=== PATIENT | male | born 1985 | race Caucasian/White ===

== ENCOUNTER → 2020-08-30 11:33 | Outpatient (BNVA) | payer OTHER, SELFPAY | PROVIDERS: Visit Provider Internal Medicine | DX: F11.20 Opioid dependence, uncomplicated (principal) | CPT/HCPCS: 80305 ==

== ENCOUNTER → 2020-10-25 10:14 | Outpatient (BNVA) | payer OTHER, SELFPAY | PROVIDERS: Visit Provider Internal Medicine | DX: Z76.89 Persons encountering health services in other specified circumstances (principal) ==

== ENCOUNTER → 2020-12-20 10:25 | Outpatient (BNVA) | payer OTHER, SELFPAY | PROVIDERS: Visit Provider Internal Medicine ==

== ENCOUNTER → 2021-02-14 10:29 | Outpatient (BNVA) | payer OTHER, SELFPAY | PROVIDERS: Visit Provider Internal Medicine ==

== ENCOUNTER → 2021-04-11 10:15 | Outpatient (BNVA) | payer OTHER, SELFPAY | PROVIDERS: Visit Provider Internal Medicine | DX: F11.99 Opioid use, unspecified with unspecified opioid-induced disorder (principal) | CPT/HCPCS: 80305 ==

== ENCOUNTER 2021-04-12 10:38 | Emergency (ER) | payer OTHER, SELFPAY ==
[2021-04-12 10:51] VITALS: BP 149/97; PULSE 100; RESP 18; TEMP 36.1; O2SAT 96; BMI 32.8
--- NOTE | 2021-04-12 11:04 | ED_ITS ---
HPI - General Adult General Chief complaint: Skin/Abscess/Foreign Body Stated complaint: QUEST CELLULITIS R ARM Time Seen by Provider: 04/12/21 10:49 Source: patient Mode of arrival: ambulatory Limitations: no limitations History of Present Illness HPI narrative: 35-year-old male who presents emergency department for evaluation of possible cellulitis to his right forearm. The patient states that he had a insect bite on (3 days prior to evaluation). He states that there was a small raised area in the area of insect bite. States that yesterday the area of redness got larger. He spoke to his sister who was a nurse who advised him to draw a line around the area of redness and was instructed to get evaluated if the redness spreads outside of the marked area. Patient states that today notice that the redness spread significantly outside of the marked area therefore came to the emergency department for evaluation. Patient states that the area of erythema is warm to the touch and is painful. He denied fever, chills, weakness, fatigue, chest pain or shortness of breath. The patient has not been on antibiotics recently. He does not have a history of MRSA infection. He states that he had a cellulitis in the past secondary to insect bite. He states that his had MRSA but this was greater than 15 years prior. Related Data Home Medications Medication Instructions Recorded Confirmed bupropion HCl 300 mg 24 hr tablet, 300 mg PO QAM 10/25/20 02/14/21 extended release lisinopril 30 mg tablet 30 mg PO DAILY 10/25/20 02/14/21 venlafaxine 150 mg 150 mg PO DAILY 02/14/21 02/14/21 capsule,extended release 24 hr tamsulosin 0.4 mg capsule 0.4 mg PO BEDTIME 04/11/21 Previous Rx's Medication Instructions Recorded buprenorphine 8 mg-naloxone 2 mg 2 film SUBLINGUAL DAILY 30 Days 04/11/21 sublingual film #60 ea cephalexin 500 mg PO QID 7 Days #28 cap 04/12/21 Allergies Allergy/AdvReac Type Severity Reaction Status Date / Time alcohol [Alcohol] Allergy Unknown HIVES Verified 04/12/21 10:53 clindamycin [CLINDAMYCIN] Allergy Unknown bleeding Verified 04/12/21 10:53 CLINDAMYCIN Allergy Unknown diarrhea Uncoded 02/14/21 11:58 Review of Systems Review of Systems: Yes all other systems are reviewed and are negative PMFSH Past Medical History [facility] Narrative: Past medical history: Hypertension, hyperlipidemia, opiate use disorder in remission. Social history: The patient denies tobacco use. He states that he rarely drinks alcohol. He denies drug use. The patient is a [employer] officer. Medical History Opioid use disorder Social History Social History Advance Directives: Yes Advance Directives Information Provided: Yes Advance Directives on File: No Physical Exam Vital Signs: Vital Signs: Last Vital Signs Temp 97.0 F 04/12/21 10:51 Pulse 100 04/12/21 10:51 Resp 18 04/12/21 10:51 BP 149/97 H 04/12/21 10:51 Pulse Ox 96 04/12/21 10:51 Body Mass Index 32.8 Const: General: cooperative, healthy appearing and comfortable Nutritional Appearance: average body habitus Orientation/consciousness: oriented to person Limitations: no limitations HENMT: Head: Yes normal to inspection Resp: Effort & Inspection: normal respiratory effort Neuro: General: oriented to person Extrem: Other: The patient has a large area of erythema to the lateral aspect of his right forearm, the area of erythema is warm to the touch, there is no flocculence. Psych: Appearance: grossly normal Mental Status: mental status grossly normal Speech and movement: Normal speech and movement present Course Course Course Narrative: 35-year-old male who presents emergency department for evaluation of insect bite to the right forearm with erythema to his right forearm that has gotten progressively worse over the past 3 days. Physical examination is consistent with cellulitis. I did discuss this with the patient. Patient does not seem to have any significant MRSA infections and given the discomfort and rapid spread I suspect that he has a streptococcal infection. Patient was started on Keflex 500 mg 4 times a day for 7 days. He is advised to take Tylenol and ibuprofen for his pain. He is advised to keep his arm elevated use a heating pad on low for 15 minutes 4 to 6 times a day. He will be given a note to not return to work for 4 days. Discharge Plan Discharge Clinical Impression: Cellulitis Patient Disposition: Home, Self-Care Instructions: Cellulitis (ED) Additional Instructions: Cellulitis Discharge Instructions You have an infection of your skin. This is called cellulitis. This is usually caused by bacteria on your skin that gets under your skin and then causes the infection Take Keflex 500 mg pills, 1 pill 4 times a day for 1 week. This is an antibiotic that should help your body fight off the infection. Keep the area of cellulitis elevated to help reduce swelling in the infected area and this helps with the healing process Also apply a heating pad on low or a warm compress for 15 minutes, 4-6 times a day. This will increase the blood flow to the area and will bring white blood cells to the area which will help your body fight off the infection. Take Motrin(ibuprofen) 200mg pills, 3 pills every 6 hours as needed for pain. Also take Tylenol( acetaminophen) 325 mg pills, 2 pills every 4 hours as needed for pain. I peter a line around the area of cellulitis, the redness should withdraw from the line in the next 1-3 days. If the redness crosses the line this is a sign that the infection is getting worse and you should see your doctor or return to the Emergency Department for a recheck. Other signs of worsening infection include fever, chills, weakness, increased pain, increased redness, increased swelling or red streaks going away from the area of infection. If you develop any of these symptoms or any other symptoms that are concerning to you, see your doctor immediately or return to the Emergency Department. Follow up with your doctor in 3 days for a recheck Please read the other printed instructions that we printed for you. Prescriptions: New cephalexin 500 mg capsule 500 mg PO QID 7 Days Qty: 28 RF: 0 No Action buprenorphine-naloxone [Suboxone] 8-2 mg film 2 film sublingual DAILY 30 Days Qty: 60 RF: 1 tamsulosin [Flomax] 0.4 mg capsule 0.4 mg PO BEDTIME RF: 0 bupropion HCl [Wellbutrin XL] 300 mg tablet extended release 24 hr 300 mg PO QAM RF: 0 lisinopril 30 mg tablet 30 mg PO DAILY RF: 0 venlafaxine [Effexor XR] 150 mg capsule,extended release 24hr 150 mg PO DAILY RF: 0 Stand Alone Forms: Work/School Release
== END 2021-04-12 11:24 | disposition home or self-care (01) ==
PROVIDERS: Emergency Provider Emergency Medicine Emergency Medical Services; PCP Internal Medicine
DX: L03.113 Cellulitis of right upper limb (principal); M79.601 Pain in right arm; Z79.899 Other long term (current) drug therapy
CPT/HCPCS: 99283

== ENCOUNTER → 2021-06-06 09:55 | Outpatient (BNVA) | payer OTHER, SELFPAY | PROVIDERS: Visit Provider Internal Medicine | DX: Z51.81 Encounter for therapeutic drug level monitoring (principal); F11.90 Opioid use, unspecified, uncomplicated | CPT/HCPCS: 80305 ==

== ENCOUNTER → 2021-07-29 11:33 | Outpatient (BNVA) | payer OTHER, SELFPAY | PROVIDERS: Visit Provider Internal Medicine | DX: Z51.81 Encounter for therapeutic drug level monitoring (principal); F11.988 Opioid use, unspecified with other opioid-induced disorder; K59.00 Constipation, unspecified | CPT/HCPCS: 80305 ==

== ENCOUNTER → 2021-09-22 10:52 | Outpatient (BNVA) | payer OTHER, SELFPAY | PROVIDERS: Visit Provider Internal Medicine | DX: F11.90 Opioid use, unspecified, uncomplicated (principal); K59.00 Constipation, unspecified | CPT/HCPCS: 80305 ==

== ENCOUNTER 2021-11-12 14:29 | Outpatient (REF) | payer OTHER, SELFPAY ==
[2021-11-12 18:27] LABS: COVID-19 Test Negative (Negative); IDNOW Serial# 9DD0AD1C
== END 2021-11-12 14:30 | disposition home or self-care (01) ==
LOC: HO.LNP 14:29
PROVIDERS: Visit Provider Internal Medicine
DX: Z20.822 Contact with and (suspected) exposure to COVID-19 (principal)
CPT/HCPCS: 87635

== ENCOUNTER → 2022-01-14 11:07 | Outpatient (BNVA) | payer OTHER, SELFPAY | PROVIDERS: Visit Provider Internal Medicine | DX: F11.90 Opioid use, unspecified, uncomplicated (principal); K59.00 Constipation, unspecified; Z51.81 Encounter for therapeutic drug level monitoring; Z88.3 Allergy status to other anti-infective agents; Z88.8 Allergy status to other drugs, medicaments and biological substances | CPT/HCPCS: 80305 ==

== ENCOUNTER → 2022-03-09 10:30 | Outpatient (BNVA) | payer OTHER, SELFPAY | PROVIDERS: Visit Provider Internal Medicine | DX: Z51.81 Encounter for therapeutic drug level monitoring (principal); F11.20 Opioid dependence, uncomplicated | CPT/HCPCS: 80305 ==

== ENCOUNTER 2022-04-14 12:30 | Emergency (ER) | payer OTHER, SELFPAY ==
[2022-04-14 12:46] VITALS: BP 140/75; PULSE 102; RESP 18; TEMP 36.8; O2SAT 97; BMI 31.9
--- NOTE | 2022-04-14 13:37 | ED.EYEPROB ---
HPI - Eye Problem General Chief complaint: Eye Problems Stated complaint: ? L Eye Infection Time Seen by Provider: 04/14/22 13:21 Source: patient Mode of arrival: ambulatory Limitations: no limitations History of Present Illness HPI Narrative: 36-year-old male here with reports of left upper eyelid swelling since last night. Patient also reports some irritation to the eye. No eye drainage, no vision changes, no pain in the eye. No fevers or chills. Does not use any contacts. Related Data Home Medications Medication Instructions Recorded Confirmed bupropion HCl 300 mg 24 hr tablet, 300 mg PO QAM 10/25/20 02/14/21 extended release (Wellbutrin XL) lisinopril 30 mg tablet 30 mg PO DAILY 10/25/20 02/14/21 venlafaxine 150 mg 150 mg PO DAILY 02/14/21 02/14/21 capsule,extended release 24 hr (Effexor XR) tamsulosin 0.4 mg capsule (Flomax) 0.4 mg PO BEDTIME 04/11/21 Previous Rx's Medication Instructions Recorded cephalexin 500 mg capsule 500 mg PO QID 7 Days #28 cap 04/12/21 naloxegol 25 mg tablet 25 mg PO QAM 30 Days #30 tab 07/29/21 lactulose 20 gram/30 mL oral 30 g (45 mL) PO DAILY 30 Days 08/04/21 solution #1350 ml buprenorphine 8 mg-naloxone 2 mg 2 film SUBLINGUAL DAILY 30 Days 03/09/22 sublingual film (Suboxone) #60 ea erythromycin 5 mg/gram (0.5 %) eye 0.5 inch OPHTHALMIC (EYE) TID #3.5 04/14/22 ointment g Allergies Allergy/AdvReac Type Severity Reaction Status Date / Time alcohol [Alcohol] Allergy Unknown HIVES Verified 04/14/22 12:46 clindamycin [CLINDAMYCIN] Allergy Unknown bleeding Verified 04/14/22 12:46 CLINDAMYCIN Allergy Unknown diarrhea Uncoded 02/14/21 11:58 Review of Systems Review of Systems: Yes all other systems are reviewed and are negative Constitutional: Constitutional: Reports no additional constitutional complaints, Denies body ache(s), Denies chills, Denies fever(s), Denies headache(s) and Denies weakness Eyes: Eyes: Reports no additional eye complaints, Denies change in vision, Denies eye discharge, Denies eye pain and Denies photophobia ENT: Reports system reviewed and no additional complaints, except as documented, Denies dizziness, Denies headache(s), Denies nasal congestion, Denies nasal discharge and Denies neck pain Cardiovascular: Cardiovascular: Reports no additional cardiovascular complaints, Denies chest pain, Denies leg edema and Denies dyspnea Respiratory: Respiratory: Reports no additional respiratory complaints, Denies cough and Denies dyspnea Gastrointestinal: Gastrointestinal: Reports no additional gastrointestinal complaints, Denies abdominal pain, Denies diarrhea, Denies nausea and Denies vomiting Genitourinary: Genitourinary: Denies urinary incontinence Musculoskeletal: Musculoskeletal: Reports no additional musculoskeletal complaints, Denies back pain, Denies arthralgias, Denies joint swelling, Denies neck pain, Denies numbness and Denies tingling Integumentary/Breasts: Skin/Breast: Reports system reviewed and no additional complaints, except as docu and Denies rash Neurologic: Reports system reviewed and no additional complaints, except as documented, Denies Abnormal speech present, Denies dizziness, Denies headache(s), Denies numbness, Denies tingling and Denies weakness PMF Past Medical History Attestation statement: The following information was validated with the patient. Source: nursing notes reviewed Medical History Constipation Opioid use disorder Social History Social History Advance Directives: No Advance Directives Information Provided: No Physical Exam Vital Signs: Vital Signs: Last Vital Signs Temp 98.3 F 04/14/22 12:46 Pulse 102 H 04/14/22 12:46 Resp 18 04/14/22 12:46 BP 140/75 H 04/14/22 12:46 Pulse Ox 97 04/14/22 12:46 BMI result Body Mass Index 31.9 Const: General: cooperative, healthy appearing, comfortable and no acute distress Orientation/consciousness: patient oriented x3 Limitations: no limitations HEENT: Head: Yes normal to inspection Ears: hearing grossly normal bilaterally Eyes: General: appearance normal, both eyes and all related structures Visual Aguiar: normal visual aguiar by confrontation Alignment and Position: alignment normal Periorbital: periorbital findings normal Eyelids: Yes eyelid abnormality (Left upper eyelid hordeolum with pointing internally) Conjunctivae: conjunctivae normal Sclerae: sclerae normal Corneas: corneas normal Pupils: Equal, round and reactive pupils present EOM: EOMs intact bilaterally Direct Ophthalmoscopy: normal light reflex and No photophobia Neck: Neck: Yes normal visual inspection Chest: Chest palpation & inspection: normal inspection of the chest Resp: Effort & Inspection: normal respiratory effort GI: Inspection: Yes normal to inspection Palpation (GI): Soft to palpation and nontender Auscultation: normal bowel sounds Back/Spine/Pelvis: Thoracic/Lumbar Spine: thoracic and lumbar spine normal to inspection Skin: General skin exam: no rashes or lesions noted Neuro: General: patient oriented x3 and no focal motor deficits Cranial nerves: Yes Equal, round and reactive pupils present Cognition (Neuro): normal cognition Speech: No Abnormal speech present Gait exam (Neuro): Normal gait present Course Course Course Narrative: 36-year-old male here with left upper eyelid hordeolum. Offered aspiration but patient declines. Will recommend warm compresses, massage and topical antibiotic ointment. Reviewed worrisome signs and symptoms of when to return to the emergency department. Comfortable discharge home. MDM - Eye Problem Medical Records Attestation: I reviewed the patient's medical records. Lab Data Attestation: I reviewed the patient's lab results. Discharge Plan Discharge Clinical Impression: Hordeolum eyelid Patient Disposition: Home, Self-Care Instructions: Tariq (ED) Additional Instructions: Warm compresses, gentle massage Prescriptions: New erythromycin 5 mg/gram (0.5 %) ointment 0.5 inch ophthalmic (eye) TID Qty: 3.5 0RF No Action cephalexin 500 mg capsule 500 mg PO QID 7 Days Qty: 28 0RF tamsulosin [Flomax] 0.4 mg capsule 0.4 mg PO BEDTIME 0RF bupropion HCl [Wellbutrin XL] 300 mg tablet extended release 24 hr 300 mg PO QAM 0RF lisinopril 30 mg tablet 30 mg PO DAILY 0RF venlafaxine [Effexor XR] 150 mg capsule,extended release 24hr 150 mg PO DAILY 0RF naloxegol 25 mg tablet 25 mg PO QAM 30 Days Qty: 30 5RF Rx Instructions: must be taken on empty stomach; no food 1 hr after or 2-3 hrs before dose lactulose 20 gram/30 mL solution 30 g PO DAILY 30 Days Qty: 1350 3RF buprenorphine-naloxone [Suboxone] 8-2 mg film 2 film sublingual DAILY 30 Days Qty: 60 1RF Rx Instructions: place 1 strip/tab under (each) side of tongue please fill today or tomorrow Referrals: Princess Medellin MD [Primary Care Provider] - 1 week (as needed)
[2022-04-14] MEDS: Erythromycin Base 0.5% Oph Oin 1 GM TUBE 1 CM EYE-LEFT (13:45)
== END 2022-04-14 14:01 | disposition home or self-care (01) ==
PROVIDERS: Emergency Provider Emergency Medicine; PCP Internal Medicine
DX: H00.024 Hordeolum internum left upper eyelid (principal)
CPT/HCPCS: 99283

== ENCOUNTER → 2022-05-04 10:04 | Outpatient (BNVA) | payer OTHER, SELFPAY | PROVIDERS: PCP Internal Medicine; Visit Provider Internal Medicine | DX: Z51.81 Encounter for therapeutic drug level monitoring (principal); F11.20 Opioid dependence, uncomplicated | CPT/HCPCS: 80305 ==

== ENCOUNTER 2022-08-02 12:31 | Emergency (ER) | payer OTHER, SELFPAY ==
--- NOTE | ~2022-08-02 | XR_ITS ---
EXAMINATION: XR KNEE, LEFT CLINICAL INFORMATION: Fall, pain COMPARISON: None TECHNIQUE: Four views of the left knee. FINDINGS: No evidence for an acute fracture or dislocation. XR/XR knee LT 4V IMPRESSION: No acute fracture or dislocation left knee. A small effusion cannot be excluded
[2022-08-02 12:33] VITALS: BP 151/83; PULSE 120; RESP 18; TEMP 37.2; O2SAT 97; BMI 31.0
--- NOTE | 2022-08-02 13:32 | ED_ITS ---
HPI - Extremity Injury (Lower) General Chief Complaint: Extremity Injury, Lower Stated Complaint: fell down steps at work Time Seen by Provider: 08/02/22 13:25 Source: patient Mode of arrival: ambulatory Limitations: no limitations History of Present Illness HPI Narrative: 37-year-old male with no pertinent past medical history presenting with left knee pain after falling at work. 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 He slipped in that paint and fell down approximately 5 stairs feet first. This occurred approximately 1 hour ago and the fall was witnessed by other police officers. He states that his left knee hyperextended when he fell and felt like it got stuck in that position, reporting that he had to pull his leg back . Reports he was able to stand up with assistance, however was unable to bear weight due to pain. Pain with weight-bearing was tenderness and however is decreased when sitting. Patient had ice applied to his knee, which helped with the pain. Denies any symptoms prior to the fall. Denies head strike, dizziness, nausea vomiting, loss of control of bowels or bladder. MD complaint: knee injury Onset (ago): minute(s) Injury: Left: knee Type of Injury: hyperextension Place: work Severity: severe Severity scale (1-10): 8 Relieving factors: cold therapy and rest Exacerbating factors: weight bearing, movement and palpation Context: fall Associated symptoms: unable to bear weight Other symptoms: none Treatments prior to arrival: cold therapy Related Data Home Medications Medication Instructions Recorded Confirmed bupropion HCl 300 mg 24 hr tablet, 300 mg PO QAM 10/25/20 02/14/21 extended release (Wellbutrin XL) lisinopril 30 mg tablet 30 mg PO DAILY 10/25/20 02/14/21 venlafaxine 150 mg 150 mg PO DAILY 02/14/21 02/14/21 capsule,extended release 24 hr (Effexor XR) tamsulosin 0.4 mg capsule (Flomax) 0.4 mg PO BEDTIME 04/11/21 Previous Rx's Medication Instructions Recorded cephalexin 500 mg capsule 500 mg PO QID 7 days #28 caps 04/12/21 naloxegol 25 mg tablet 25 mg PO QAM 30 days #30 tabs 07/29/21 lactulose 20 gram/30 mL oral 30 g (45 mL) PO DAILY 30 days 08/04/21 solution #1,350 mL erythromycin 5 mg/gram (0.5 %) eye 0.5 inch ophthalmic (eye) TID #3.5 04/14/22 ointment grams buprenorphine 8 mg-naloxone 2 mg 2 film sublingual DAILY 30 days 06/29/22 sublingual film (Suboxone) #60 ea acetaminophen 500 mg tablet 1,000 mg PO QID PRN fever or pain 08/02/22 (Tylenol Extra Strength) #14 tabs ibuprofen 800 mg tablet 800 mg PO Q8H PRN pain #14 tabs 08/02/22 Allergies Allergy/AdvReac Type Severity Reaction Status Date / Time alcohol [Alcohol] Allergy Unknown HIVES Verified 06/29/22 10:21 clindamycin [CLINDAMYCIN] Allergy Unknown bleeding Verified 06/29/22 10:21 CLINDAMYCIN Allergy Unknown diarrhea Uncoded 02/14/21 11:58 Review of Systems Review of Systems: Constitutional : No Fever, No Chills ENT/Mouth : No Ear Pain, No Hoarseness, No sore throat Eyes: No Eye Pain, No Swelling, No Redness, No Foreign Body Cardiovascular : No Chest Pain, No SOB Respiratory : No Cough, No Dyspnea Gastrointestinal : No Nausea, No Vomiting, No Diarrhea, No abdominal Pain Genitourinary : No Dysuria, No Hematuria Musculoskeletal : + left knee pain, No Myalgias, No Joint Swelling Skin : No Skin lacerations, No rash Neuro : No Weakness, No Numbness, No Paresthesias, No Loss of Consciousness, No Dizziness, No Headache Psych : No Anxiety/Panic, No Depression Heme/Lymph: no easy bruising, no Lymphadenopathy Endocrine : No Polyuria, No Polydipsia Yes all other systems are reviewed and are negative COUNT INCLUDES THE [facility] Past Medical History Attestation statement: The following information was validated with the patient. Source: old records reviewed and nursing notes reviewed Medical History Constipation Opioid use disorder Social History Social History Advance Directives: No Advance Directives Information Provided: No Physical Exam Vital Signs: Vital Signs: Last Vital Signs Temp 98.9 F 08/02/22 12:33 Pulse 120 H 08/02/22 12:33 Resp 18 08/02/22 12:33 BP 151/83 H 08/02/22 12:33 Pulse Ox 97 08/02/22 12:33 O2 Del Method 08/02/22 12:33 BMI result Body Mass Index 31.0 vital signs have been reviewed as normal and appeared to be correct. Blood pressure 151/83 Heart rate 120. Respiration rate normal. Temperature normal. Oxygen saturation normal. Appearance: Alert. Oriented X3. No acute distress. Sitting in wheelchair Head: Normal external exam. Normocephalic. Atraumatic. Eyes: PERRLA. EOMI. Conjunctiva and sclera normal. Eyelids normal. ENT: Pharynx normal. Moist mucous membranes. Neck: Normal inspection. Neck supple. FROM. CVS: Normal heart rate and rhythm. Respiratory: No respiratory distress. Painless inspiration. Skin: Skin warm and dry. Normal skin color. Normal skin turgor. No rashes/lesions/lacerations noted. Extremities: + pain with range of motion of left knee, pain with posterior palpation injuring her in palpation of left knee, no deformity, ecchymosis, edema noted, no obvious ligamentous or tendon injury noted. No lower extremity edema. Able to demonstrate full range of motion, no numbness, paresthesias, loss of sensation. Otherwise all other extremities exhibit normal range of motion nontender. Neuro: Oriented X 3. No motor deficit. No sensory deficit. Reflexes normal. Normal steady gait. No focal neuro deficits noted. Course Course Course Narrative: 37-year-old male with no pertinent past medical history presenting with left knee pain after falling down approximately 5 stairs after slipping in paint. Patient states fell the feet first, and hyperextended his left leg, having to pull back his lower leg into flexion after the fall. On exam, no obvious deformity, no edema, and no ecchymosis, full range of motion, pain with range of motion, pain with palpation of joint line and posterior knee, no joint effusi on. XR pending Reevaluation(s) Reevaluation #1: XR knee LT 4V IMPRESSION: No acute fracture or dislocation left knee. A small effusion cannot be excluded - therefore at this time will DC home with symptomatic treatment and an Charles wrap with crutches and instructions follow-up with work connection and ortho if symptoms persist for longer than 2-3 weeks. Patient understands agrees with this plan. Time: 14:16 MDM - Extremity Injury (Lower) Medical Records Attestation: I reviewed the patient's medical records. Discharge Plan Discharge Clinical Impression: Left knee sprain, Work related injury Patient Disposition: Home, Self-Care Instructions: Knee Sprain (ED), Crutch Instructions (ED), How to Use an Elastic Bandage (ED) Additional Instructions: Your knee x-ray was normal. You most likely sprained her knee by falling. Please use NSAIDs and ice to manage pain. Please use Charles wrap for compression. Use crutches until your able to walk without pain. You may need to follow-up with orthopedics if your symptoms do not resolve in 1-2 weeks. Prescriptions: New ibuprofen 800 mg tablet 800 mg PO Q8H PRN (Reason: pain) Qty: 14 0RF acetaminophen [Tylenol Extra Strength] 500 mg tablet 1,000 mg PO QID PRN (Reason: fever or pain) Qty: 14 0RF No Action cephalexin 500 mg capsule 500 mg PO QID 7 Days Qty: 28 0RF erythromycin 5 mg/gram (0.5 %) ointment 0.5 inch ophthalmic (eye) TID Qty: 3.5 0RF tamsulosin [Flomax] 0.4 mg capsule 0.4 mg PO BEDTIME bupropion HCl [Wellbutrin XL] 300 mg tablet extended release 24 hr 300 mg PO QAM lisinopril 30 mg tablet 30 mg PO DAILY venlafaxine [Effexor XR] 150 mg capsule,extended release 24hr 150 mg PO DAILY naloxegol 25 mg tablet 25 mg PO QAM 30 Days Qty: 30 5RF Rx Instructions: must be taken on empty stomach; no food 1 hr after or 2-3 hrs before dose lactulose 20 gram/30 mL solution 30 g PO DAILY 30 Days Qty: 1350 3RF buprenorphine-naloxone [Suboxone] 8-2 mg film 2 film sublingual DAILY 30 Days Qty: 60 1RF Rx Instructions: place 1 strip/tab under (each) side of tongue please fill today or tomorrow Referrals: Princess Medellin MD [Primary Care Provider] - 3 days (and WORK CONNECTION FOR YOUR JOB) [facility] [Provider Group] (Call to make a follow-up appointment if symptoms persist for longer than 2-3 weeks) Stand Alone Forms: Work/School Release
[2022-08-02] MEDS: Ibuprofen 800 MG TABLET PO (13:44)
== END 2022-08-02 14:40 | disposition home or self-care (01) ==
PROVIDERS: Emergency Provider Emergency Medicine; PCP Internal Medicine
DX: S83.92XA Sprain of unspecified site of left knee, initial encounter (principal); X50.1XXA Overexertion from prolonged static or awkward postures, initial encounter; Y93.9 Activity, unspecified; Y92.9 Unspecified place or not applicable; Y99.9 Unspecified external cause status; Z79.899 Other long term (current) drug therapy
CPT/HCPCS: 73564; 99283

== ENCOUNTER → 2022-08-04 08:50 | Outpatient (BNVA) | payer OTHER, SELFPAY | PROVIDERS: PCP Internal Medicine; Visit Provider Physician Assistant Medical | DX: S76.112A Strain of left quadriceps muscle, fascia and tendon, initial encounter (principal); W10.8XXA Fall (on) (from) other stairs and steps, initial encounter | CPT/HCPCS: 99202 ==

== ENCOUNTER → 2022-08-11 11:08 | Outpatient (BNVA) | payer OTHER, SELFPAY | PROVIDERS: PCP Internal Medicine; Visit Provider Physician Assistant | DX: M23.92 Unspecified internal derangement of left knee (principal) | CPT/HCPCS: 99213 ==

== ENCOUNTER 2022-08-25 18:53 | Outpatient (REF) | payer OTHER, SELFPAY ==
--- NOTE | ~2022-08-25 | MR_ITS ---
EXAMINATION: MR KNEE WITHOUT CONTRAST, LEFT CLINICAL INFORMATION: Twisted knee pain. COMPARISON: X-ray the left knee July 2022 TECHNIQUE: MRI of the knee without contrast was performed using routine sequences on a high-field scanner. FINDINGS: MENISCI: Medial Meniscus: Intact Lateral Meniscus: Intact LIGAMENTS: Cruciate: Intact Collateral: Intact EXTENSOR MECHANISM: Intact Mild edema within the quadriceps fat pad. ARTICULAR CARTILAGE/BONE: Patellofemoral Compartment: Normal Medial Compartment: Normal Lateral Compartment: Normal JOINT FLUID AND BURSAE: Normal MR/MR knee LT wo con IMPRESSION: Mild edema in the quadriceps fat pad. This can be associated with anterior knee pain in some patients.
== END 2022-08-25 18:54 | disposition home or self-care (01) ==
LOC: HO.MRI 18:53
PROVIDERS: Visit Provider Internal Medicine
DX: M25.562 Pain in left knee (principal)
CPT/HCPCS: 73721

== ENCOUNTER → 2022-10-16 10:12 | Outpatient (BNVA) | payer OTHER, SELFPAY | PROVIDERS: PCP Internal Medicine; Visit Provider Internal Medicine | DX: F11.20 Opioid dependence, uncomplicated (principal); Z51.81 Encounter for therapeutic drug level monitoring; Z79.899 Other long term (current) drug therapy | CPT/HCPCS: 99212 ==

== ENCOUNTER → 2022-12-11 09:10 | Outpatient (BNVA) | payer OTHER, SELFPAY | PROVIDERS: PCP Internal Medicine; Visit Provider Nurse Practitioner Psychiatric/Mental Health | DX: Z51.81 Encounter for therapeutic drug level monitoring (principal); Z79.899 Other long term (current) drug therapy | CPT/HCPCS: 80305 ==

== ENCOUNTER → 2023-02-05 13:05 | Outpatient (BNVA) | payer OTHER, SELFPAY | PROVIDERS: PCP Internal Medicine | DX: Z13.89 Encounter for screening for other disorder (principal) ==

== ENCOUNTER → 2023-04-02 09:13 | Outpatient (BNVA) | payer OTHER, SELFPAY | PROVIDERS: PCP Internal Medicine; Visit Provider Nurse Practitioner Psychiatric/Mental Health ==

== ENCOUNTER 2023-06-23 11:28 | Outpatient (REF) | payer OTHER, SELFPAY ==
[2023-06-23 12:32] LABS: Alanine Aminotransferase 27 U/L (0-40); Albumin Level 4.1 g/dL (3.5-5.0); Alkaline Phosphatase 74 U/L (39-117); Aspartate Amino Transferase 20 U/L (5-37); Bilirubin Direct 0.2 mg/dL (0.0-0.5); Bilirubin Total 0.6 mg/dL (0.0-1.0); Total Protein 6.8 g/dL (6.5-8.0)
== END 2023-06-23 11:29 | disposition home or self-care (01) ==
LOC: HO.LAB 11:28
PROVIDERS: PCP Internal Medicine; Visit Provider Nurse Practitioner Psychiatric/Mental Health
DX: Z79.899 Other long term (current) drug therapy (principal)
CPT/HCPCS: 36415; 80076

== ENCOUNTER 2023-06-25 09:11 | Outpatient (AMB) | payer OTHER, SELFPAY ==
--- NOTE | 2023-06-25 09:13 | A.OFFVIS_ITS ---
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 No issues at this time Still hiking several days per week, will be traveling to [place] in Jul. kanika choe Reviewed lab work recently completed [facility] Medical History Constipation Opioid use disorder Review of Systems Const Reports as per HPI and Reports no additional complaints Physical Exam Vital Signs: Last Vital Signs Pulse 90 06/25/23 09:17 BP 118/76 06/25/23 09:17 Pulse Ox 96 06/25/23 09:17 Oxygen Delivery Method Room Air 06/25/23 09:17 Const General: cooperative and healthy appearing Psych Appearance: well kempt Speech and movement: Clear speech present Affect: normal affect Insight: Good insight present (Psych) Judgement: Good judgement present (Psych) Assessment & Plan Assessment & Plan (1) Opioid use disorder, moderate, in sustained remission: Code(s): F11.21 - Opioid dependence, in remission Plan: * continue suboxone at current dose * follow up 4 months Medications: Refilled buprenorphine-naloxone 8-2 mg (Suboxone) 1 film sublingual BID 60 ea 3RF 30 days Coding Level of Care Code Est Pt Level 3 (59420) Diagnoses Opioid use disorder, moderate, in sustained remission F11.21
[2023-06-25 09:17] VITALS: BP 118/76; PULSE 90; O2SAT 96
== END 2023-06-25 09:43 | disposition home or self-care (01) ==
LOC: HO.HCC 09:11
PROVIDERS: PCP Internal Medicine; Visit Provider Nurse Practitioner Psychiatric/Mental Health
DX: F11.21 Opioid dependence, in remission (principal)
CPT/HCPCS: 99213

== ENCOUNTER → 2023-06-25 09:11 | Outpatient (BNVA) | payer OTHER, SELFPAY | PROVIDERS: PCP Internal Medicine; Visit Provider Nurse Practitioner Psychiatric/Mental Health | DX: Z79.899 Other long term (current) drug therapy (principal) ==

== ENCOUNTER 2023-10-15 09:17 | Outpatient (AMB) | payer OTHER, SELFPAY ==
--- NOTE | 2023-10-15 09:26 | A.OFFVIS_ITS ---
Intake Vital Signs 10/15/23 09:30 BP 118/82 Blood Pressure Location Lt radial Position Sitting Pulse 99 Pulse Source Pulse Oximeter Pulse Oximetry (%) 94 Oxygen Delivery Method Room Air Intake Visit Reasons: MAT Visit Intake Note: the patient presents for a mat visit Hospital Insurance Representative Required: No Allergies alcohol [Alcohol] Allergy (Unknown, Verified 10/15/23 09:31) HIVES clindamycin [CLINDAMYCIN] Allergy (Unknown, Verified 10/15/23 09:31) bleeding CLINDAMYCIN Allergy (Unknown, Uncoded 10/15/23 09:31) diarrhea Medication List - Last Reconciled 10/15/23 by Sarah Lombardo CNP buprenorphine-naloxone 8-2 mg (Suboxone) 1 film sublingual BID 30 days bupropion HCl (Wellbutrin XL) 300 mg PO QAM lisinopril 30 mg PO DAILY testosterone 1 pump topical DAILY Do you need a note to return to daycare/school/sports/work: No HPI MAT Visit HPI Details Patient presents for follow up Currently prescribed SUboxone 8mg BID Doing well overall. Francis lincoln in [place]. Shared with his sister for the first time that he was in recovery. [facility] Medical History Constipation Opioid use disorder Review of Systems Const Reports as per HPI and Reports no additional complaints Physical Exam Vital Signs: Last Vital Signs Pulse 99 10/15/23 09:30 BP 118/82 10/15/23 09:30 Pulse Ox 94 10/15/23 09:30 Oxygen Delivery Method Room Air 10/15/23 09:30 Const General: cooperative and healthy appearing Psych Appearance: well kempt Speech and movement: Clear speech present Affect: normal affect Insight: Good insight present (Psych) Judgement: Good judgement present (Psych) Assessment & Plan Assessment & Plan (1) Opioid use disorder, moderate, in sustained remission: Code(s): F11.21 - Opioid dependence, in remission Plan: * continue suboxone at current dose * follow up 4 months Medications: Refilled buprenorphine-naloxone 8-2 mg (Suboxone) 1 film sublingual BID 60 ea 3RF 30 days Coding Level of Care Code Est Pt Level 3 (17502) Diagnoses Opioid use disorder, moderate, in sustained remission F11.21
[2023-10-15 09:30] VITALS: BP 118/82; PULSE 99; O2SAT 94
== END 2023-10-15 11:42 | disposition home or self-care (01) ==
PROVIDERS: PCP Internal Medicine; Visit Provider Nurse Practitioner Psychiatric/Mental Health
DX: F11.21 Opioid dependence, in remission (principal)
CPT/HCPCS: 99213

== ENCOUNTER → 2023-10-15 09:17 | Outpatient (BNVA) | payer OTHER, SELFPAY | PROVIDERS: PCP Internal Medicine; Visit Provider Nurse Practitioner Psychiatric/Mental Health | DX: Z79.899 Other long term (current) drug therapy (principal) ==

== ENCOUNTER 2024-02-01 09:02 | Outpatient (AMB) | payer OTHER, SELFPAY ==
--- NOTE | 2024-02-01 09:23 | MHC.AM.SUB ---
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 Allergies alcohol [Alcohol] Allergy (Unknown, Verified 02/01/24 09:28) HIVES clindamycin [CLINDAMYCIN] Allergy (Unknown, Verified 02/01/24 09:28) bleeding CLINDAMYCIN Allergy (Unknown, Uncoded 02/01/24 09:28) diarrhea Do you need a note to return to daycare/school/sports/work: No HPI MAT Visit HPI Details Patient presents for follow up Tolerating current dose, however experiencing occasional constipation PRN senna, which is effective--encouraged to take daily until BM are regular Still hiking--planning for summer and he will hike in [facility] Medical History (Updated 02/01/24 @ 11:30 by Sarah Lombardo CNP) Constipation Opioid use disorder Review of Systems Const Reports as per HPI and Reports no additional complaints Physical Exam Vital Signs: Last Vital Signs Pulse 86 02/01/24 09:27 BP 128/82 02/01/24 09:27 Pulse Ox 95 02/01/24 09:27 Oxygen Delivery Method Room Air 02/01/24 09:27 Const General: cooperative and healthy appearing Psych Appearance: well kempt Speech and movement: Clear speech present Affect: normal affect Insight: Good insight present (Psych) Judgement: Good judgement present (Psych) Assessment & Plan Assessment & Plan (1) Opioid use disorder, moderate, in sustained remission: Code(s): F11.21 - Opioid dependence, in remission Plan: continue suboxone at current dose follow up 5 months (2) Constipation: Code(s): K59.00 - Constipation, unspecified Plan: senna qd then PRN Medications: New sennosides (senna) 8.6 mg PO DAILY PRN 30 caps 0RF constipation Refilled buprenorphine-naloxone 8-2 mg (Suboxone) 1 film sublingual BID 60 ea 4RF 30 days Coding Level of Care Code Est Pt Level 4 (13721) Diagnoses Opioid use disorder, moderate, in sustained remission F11.21 Constipation K59.00
[2024-02-01 09:27] VITALS: BP 128/82; PULSE 86; O2SAT 95
== END 2024-02-01 09:43 | disposition home or self-care (01) ==
PROVIDERS: PCP Internal Medicine; Visit Provider Nurse Practitioner Psychiatric/Mental Health
DX: F11.21 Opioid dependence, in remission (principal); K59.00 Constipation, unspecified
CPT/HCPCS: 99214

== ENCOUNTER → 2024-02-01 09:02 | Outpatient (BNVA) | payer OTHER, SELFPAY | PROVIDERS: PCP Internal Medicine; Visit Provider Nurse Practitioner Psychiatric/Mental Health | DX: Z79.899 Other long term (current) drug therapy (principal) ==

== ENCOUNTER → 2024-06-21 14:46 | Outpatient (BNVA) | payer BC, SELFPAY | PROVIDERS: PCP Internal Medicine; Visit Provider Nurse Practitioner Psychiatric/Mental Health ==

== ENCOUNTER 2024-12-08 10:49 | Outpatient (AMB) | payer BC, SELFPAY ==
[2024-12-08 11:10] VITALS: BP 145/90; PULSE 98; O2SAT 98
--- NOTE | 2024-12-08 11:10 | MHC.AM.SUB ---
Vital Signs 12/08/24 11:10 BP 145/90 H Blood Pressure Location Rt brachial Pulse 98 Pulse Oximetry (%) 98 Intake Visit Reasons: MAT Office Allergies alcohol [Alcohol] Allergy (Unknown, Verified 02/01/24 09:28) HIVES clindamycin [CLINDAMYCIN] Allergy (Unknown, Verified 02/01/24 09:28) bleeding CLINDAMYCIN Allergy (Unknown, Uncoded 02/01/24 09:28) diarrhea Medication List - Last Reconciled 12/08/24 by Sarah Lombardo CNP buprenorphine-naloxone 8-2 mg (Suboxone) 1 film sublingual BID bupropion HCl XL (Wellbutrin XL) 300 mg PO QAM lisinopril 30 mg PO DAILY sennosides (senna) 8.6 mg PO DAILY PRN testosterone 1 pump topical DAILY HPI HPI MAT Office: Details: Patient presents for follow up Currently prescribed suboxone 8mg BID Tolerating current dose constipation improved with miralax PRN Review of Systems Const Reports as per HPI Physical Exam Vital Signs: Last Vital Signs Pulse 98 12/08/24 11:10 BP 145/90 H 12/08/24 11:10 Pulse Ox 98 12/08/24 11:10 Const General: cooperative and healthy appearing Psych Appearance: well kempt Speech and movement: Clear speech present Affect: normal affect Insight: Good insight present (Psych) Judgement: Good judgement present (Psych) [facility] Medical History (Updated 02/01/24 @ 11:30 by Sarah Lombardo CNP) Constipation Opioid use disorder Assessment & Plan Assessment & Plan (1) Opioid use disorder, moderate, in sustained remission: Code(s): F11.21 - Opioid dependence, in remission Category: Medical Plan: continue suboxone at current dose follow up 6 months (2) Constipation: Code(s): K59.00 - Constipation, unspecified Category: Medical Plan: senna qd then PRN Medications: New atorvastatin (Lipitor) 20 mg PO DAILY
--- OUTSIDE RECORDS SUMMARY | 2024-12-08 12:32 | XMS_ITS | Encounter Summary ---
Author Name [facility] ([facility] Organization [facility] Address [address] [place] [address] Care Team Providers Care Pin Maker Name Role Phone REJI PITTS Primary Care Provider Unavailabl e Insurance Providers: All historical and current Section Date Range: From patient's date of to the date document was created. This section includes the names of all active insurance providers for the patient. Insurance Provider Type of Coverage Plan Name Start of Policy Coverage End of Policy Coverage Group Number Member ID Insurance Provider's Telephone Number Policy Salazar's Name Patient's Relationship to Policy Salazar [facility] CE ORGANIZAT ION [facility] POLIC E DEPT May 15, 2024 [id number] [phone] RIAZ WARREN IK PATIENT BCBS OF [facility] CE ORGANIZAT ION [facility] POLIC E DEPT May 15, 2024 [id number] RIAZ WARREN IK PATIENT [place] PRESCRIPT ION RX May 15, 2024 [id number] RIAZ WARREN PATIENT CIGNA POINT OF SERVICE [facility] May 15, 2017 [id number] RIAZ WARREN PATIENT CIGNA [facility] May 15, 2017 [id number] [phone] RIAZ WARREN PATIENT CIGNA PHARMACY PRESCRIPT OLEKSANDR [facility] May 15, 2017 [id number] RIAZ WARREN PATIENT Selected Encounter This section includes the information on record at ID for the Encounter. Date/Time Encounter Type Encounter Description Reason Provider Source Aug 08, 2024 11:00 AM OFFICE O/P EST MOD 30 MIN PRIMARY CARE/MEDICINE ICD-10-CM E78.5 Hyperlipidemia, unspecified STELEALILIANA F E Encounter Template Text not used by ID Assessments - Encounter Diagnoses This section includes the primary and secondary diagnoses documented for the Encounter. Date/Time Primary/Secondary Diagnosis Diagnosis Name Provider Source Aug 08, 2024 11:30 AM PRIMARY Hyperlipidemia, unspecified JULIAAUDIEASONALILILIANA F [place] Aug 08, 2024 11:30 AM SECONDARY Encounter for immunization Carmen KIM [place] Aug 08, 2024 11:30 AM SECONDARY Essential (primary) hypertension JULIALLIIANA LOVING [place] Aug 08, 2024 11:30 AM SECONDARY Post-traumatic stress disorder, chronic LILIANA PAN [place] Plan of Treatment: Future Appointments (+ 6 months) and Future Tests (+/- 45 days) The Plan of Treatment section includes future care activities for the patient from [facility] This section includes future appointments and future orders which are active, pending or scheduled. Future Appointments This section includes appointments that were scheduled to occur 6 months from the date of the Encounter, up to a maximum of 20 appointments. The data comes from all [facility]. Appointment Date/Time Appointment Type Appointme nt Facility Name Sep 01, 2024 10:00 AM AMBULATORY - NONE [facility] [place] [facility] Dec 20, 2024 08:50 AM AMBULATORY - MEDICINE ID [facility] [place] [facility] Jan 11, 2025 09:30 AM AMBULATORY - MEDICINE [facility] Active, Pending, and Scheduled Orders This section includes a listing of several types of active, pending, and scheduled orders, including clinic medications orders, diagnostic test orders, procedure orders and consult orders; where thestart date of the order is 45 days before the date of the Encounter or 45 days after the date of the Encounter. The data comes from all [facility] Test Date/Time Test Type Test Details Facility Name Aug 05, 2024 12:00 AM Laboratory - Chemi stry Order BASIC METABOLIC PANEL (fasting) BLOOD (SST-SERUM) [facility] Aug 05, 2024 12:00 AM Laboratory - Chemi stry Order LIPID PANEL FASTING BLOOD (SST-SERUM) [facility] Aug 05, 2024 12:00 AM Laboratory - Chemi stry Order LIVER FUNCTION BLOOD (SST-SERUM) [facility] Aug 05, 2024 12:00 AM Laboratory - Chemi stry Order CBC AND DIFF (AUTO) BLOOD (LAV-BLOOD) [facility] Aug 05, 2024 12:00 AM Laboratory - Chemi stry Order HEMOGLOBIN A1C PANEL BLOOD (LAV-BLOOD) [facility] Aug 05, 2024 12:00 AM Laboratory - Chemi stry Order TSH BLOOD (SST-SERUM) [facility] Aug 05, 2024 12:00 AM Laboratory - Chemi stry Order URINALYSIS URINE [facility] Aug 08, 2024 12:00 AM Laboratory - Chemi stry Order LIVER FUNCTION BLOOD (SST-SERUM) [facility] Aug 08, 2024 12:00 AM Laboratory - Chemi stry Order TSH BLOOD (SST-SERUM) [facility] Sep 13, 2024 09:16 AM Consult Order COMMUNITY CARE-UROLOGY Cons Radiology Administrator's Choice [place] Vital Signs: All taken on the encounter date This section contains inpatient and outpatient Vital Signs collected on the date of the Encounter. Date/Time Temperature Pulse Blood Pressure Respiratory Rate SP02 Pain Height Weight Body Mass Index Source Aug 08, 2024 10:53 AM 87 133/81 98 234 36 [facility] IELD Immunizations: All administered on the encounter date This section contains immunizations associated to the Encounter. Immunization Series Date Issued Reaction Comments INFLUENZA, SPLIT VIRUS, TRIVALENT, PF Aug 08 2 024 Social History: Smoking Status (Most current) and Tobacco Use (All prior to encounter date) This section includes the most current, and the historical, smoking and tobacco- related health factors from the ID facility where the Encounter took place. Current Smoking Status This section includes the most current smoking, or tobacco-related health factor, from the ID facility where the Encounter took place. Date/Time Current Smoking Status Comment Navin y Aug 08, 2024 11:00 AM ID-TOBACCO FORMER USER [place] Tobacco Use History This section includes a history of the smoking, or tobacco-related health factors, that were collected on or before the date of the Encounter. The data comes from the ID facility where the Encounter took place. Date/Time Smoking Status/Tobacco Use Comment F acility Aug 08, 2024 11:00 AM VA-TOBACCO QUIT 5 TO < 15 YRS [place] Jan 18, 2023 11:00 AM VA-TOBACCO DOESNT USE WI 30 MIN WAKEUP [place] Jan 18, 2023 11:00 AM VA-TOBACCO USE < 1 YEAR [place] Jan 18, 2023 11:00 AM VA-TOBACCO USE ADVICE [place] Jan 18, 2023 11:00 AM VA-TOBACCO USE SUPERVISOR LEAF SPRING REPAIR NO [place] Jan 18, 2023 11:00 AM VA-TOBACCO USE MED NO [place] Jan 18, 2023 11:00 AM VA-TOBACCO USER EVERY DAY [place] Jan 19, 2020 09:47 AM VA-TOBACCO DOESNT USE WI 30 MIN WINNECONNEUP [place] Jan 19, 2020 09:47 AM VA-TOBACCO USE > 1 5 LESS THAN 30 YEARS [place] Jan 19, 2020 09:47 AM VA-TOBACCO USE ADVICE [place] Jan 19, 2020 09:47 AM VA-TOBACCO USE SUPERVISOR LEAF SPRING REPAIR NO [place] Jan 19, 2020 09:47 AM VA-TOBACCO USE MED NO [place] Jan 19, 2020 09:47 AM VA-TOBACCO USER SOME DAYS [place] Jan 11, 2019 11:37 AM VA-TOBACCO DOESNT USE WI 30 MIN [facility] Jan 11, 2019 11:37 AM VA-TOBACCO USE 5 TO 15 YEARS [place] Jan 11, 2019 11:37 AM VA-TOBACCO USE ADVICE [place] Jan 11, 2019 11:37 AM VA-TOBACCO USE SUPERVISOR LEAF SPRING REPAIR NO [place] Jan 11, 2019 11:37 AM VA-TOBACCO USE MED NO [place] Jan 11, 2019 11:37 AM VA-TOBACCO USER SOME DAYS [place] Feb 02, 2018 09:56 AM CURRENT SMOKER 1 to 2 cigarettes a week [place] Feb 02, 2018 09:56 AM V1-PT NOT INTEREST ED IN QUIT TOBACCO USE [place] Mar 05, 2017 08:16 AM CURRENT SMOKELESS TOBACCO USER one can every 3 months [place] Mar 05, 2017 08:16 AM CURRENT SMOKER about a pack a month [place] Mar 05, 2017 08:16 AM V1-PT NOT INTEREST ED IN QUIT TOBACCO USE [place] May 08, 2016 08:06 AM CURRENT SMOKER trying back [place] May 08, 2016 08:06 AM V1-PT DECLINES REF TO TOBACCO CESS PRGM [place] May 08, 2016 08:06 AM V1-PT DECLINES TOB ACCO CESSATION [facility] May 08, 2016 08:06 AM V1-PT THINKING ABO UT QUIT TOBACCO USE [place] Apr 29, 2016 05:57 PM V1-PT DECLINES REF TO TOBACCO CESS [facility] [place] Apr 29, 2016 05:57 PM V1-PT READY TO WICHO T TOBACCO USE [place] Oct 23, 2015 01:29 PM V1-PT DECLINES REF TO TOBACCO CESS [facility] [place] Oct 23, 2015 01:29 PM V1-PT DECLINES TOB ACCO CESSATION [facility] Oct 23, 2015 01:29 PM V1-PT THINKING ABO UT QUIT TOBACCO USE [place] April 12, 2015 09:54 AM CURRENT SMOKER 1/4 to 1/2 ppd since stopped chantix [place] April 12, 2015 09:54 AM V1-PT THINKING ABO UT QUIT TOBACCO USE [place] April 12, 2015 09:54 AM V1-TOBACCO CESS ME DS NOT PRESCRIBED pt plans to discuss with Dr. Medellin [place] Jul 27, 2014 10:16 AM V1-PT DECLINES REF TO TOBACCO CESS [facility] [place] Jul 27, 2014 10:16 AM V1-PT READY TO WICHO T TOBACCO USE [place] Radiology Reports: +/- 30 days of the encounter Radiology Reports For cases when an order for radiology services may have been completed prior to the date of the Encounter, the report list includes the Radiology Reports that were completed up to 30 days before dateof the Encounter. For cases when an order for radiology services may have been completed after the date of the Encounter, the report list also includes the Radiology Reports that were completed up to30 days after date of the Encounter. The data comes from all ID treatment facilities. Date/Time Radiology Report Provider Source Sep 01, 2024 10:05 AM BONE DENSITY AXIAL HIPS,PELVIS.SPINE: CHASITY WARREN [id number] -[id number] M Exm Date: SEP 01, 2024@10:05 Req Phys: ALVARADO,SAHRA Pat Loc: [facility]/ENDOCRINE (Req'g Loc) Img Loc: [facility] [place]/BUILDING 1 Service: Unknown ID [facility] [place] [id number] (Case [phone] COMPLETE) BONE DENSITY AXIAL HIPS,PELVIS.SP(RAD Detailed) CPT:74974 Reason for Study: osteopenia Clinical History: Report Status: Verified Date Reported: SEP 01, 2024 Date Verified: SEP 01, 2024 Inspector Hairspring Truing E-Sig:/ES/KAYLA MOCK JR Report: Study: DEXA scan. Comparison: DEXA scan from April 28, 2022. Findings: Images obtained on a [employer] DEXA Machine. According to the International Society for Clinical Densitometry's 2013 consensus conference, in men less than age 50: Z-scores, not T-scores are preferred. A Z-score of -2.0 or lower is defined as 'below the expected range for age' and a Z-score above -2.0 is 'within the expected range for age'. Osteoporosis cannot be diagnosed in men under age 50 on the basis of BMD alone. Measurement of bone mineral content gives a T score of -0.8 in the hip, which previously measured -0.8, a change of 0.5% from prior. Measurement of bone mineral content gives a Z score of -0.3 in the hip, which previously measured -0.4, a change of 1.1% from prior. Bone mineral content in the lumbar spine gives a T-score currently of -2.0 which previously measured -1.8, which is a change of -1.7% from prior. Measurement of bone mineral content gives a Z score of -1.9 in the lumbar spine, which previously measured -1.8, a change of -1.0% from prior. The FRAX WHO Fracture Risk Assessment Tool is not calculated because the patient is a male below the age of 50. Impression: The patient is a male below the age of 50. Z scores within the expected range for age, as described above. Please note: 1. The T-score compares the BMD of an individual with the young normal mean and expresses the difference as a standard deviation score. 2. The Z-score compares the BMD of an individual with age-matched, gender-matched, and ethnic-matched controls and expresses the difference as a standard deviation score. 3. The World Health Organization classified postmenopausal women as osteoporotic when T-scores are -2.5 or below, osteopenic when T-scores are between -1.0 and -2.5 and normal when T-scores are -1.0 or above. 4. In untreated postmenopausal women and elderly men there is a strong association between low BMD and the risk of osteoporotic fractures. 5. The National Osteoporosis Foundation recommends pharmacologic therapy for osteoporosis in postmenopausal women with T-scores of -2.0 or below, in the absence of other risk factors, and with T-scores of -1.5 or below if other risk factors are present (History of fragility fracture, family history of osteoporosis, weight less than 127 lbs., or smoking). 6. The [place] [employer] recommends pharmacologic therapy for osteoporosis for chronic glucocorticoid users with T-scores of -2.0 or below. Note 1: The presence of vertebral abnormalities such as scoliosis or osteophytes, or aortic/ligamentous calcifications can alter readings of the lumbar spine. In such cases, readings of the hips are more reliable. Note 2: According to the International Society for Clinical Densitometry's 2013 consensus conference, in women prior to menopause and men less than age 50: Z-scores, not T-scores are preferred. A Z-score of -2.0 or lower is defined as 'below the expected range for age' and a Z-score above -2.0 is 'within the expected range for age'. The WHO diagnostic criteria may be applied in women in the menopausal transition. Osteoporosis cannot be diagnosed in men under age 50 on the basis of BMD alone. Note 3: Approaches to reduce osteoporosis related fracture risk include optimizing calcium and vitamin D status and fall prevention measures. The National Osteoporosis Foundation recommendations can be found in http://www.nof.org/hcp/pra rodriice/wauidnoj-lxw-yzcviue l-guidelines/ clinicians-guide. All treatment decisions require clinical judgment and consideration of individual factors including patient preferences, comorbidities, prior drug use, risk factors not captured in the FRAX model (e.g. sarcopenia, falls, vitamin D deficiency, increased bone turnover, interval significant decline in bone density) and possible under- or overestimation of fracture risk by FRAX. Useful resources regarding osteoporosis and treatment guidelines: National Osteoporosis Foundation https://www.nof.org/dara samuel/diagnosis-information/b rdb-utkxmyv-s amtesting/ International Osteoporosis Foundation https://www.iofbonehealth. org/ International Society for Clinical Densitometry https://www.iscd.org/patie nt-information/ FRAX(R) Fracture Risk Assessment Tool https://www.pelon.ac.u k/FRAX/ Primary Diagnostic Code: No immediate attention required Primary Interpreting Staff: AKYLA MOCK JR, Radiologist (Inspector Hairspring Truing) /EAD KAYLA MOCK JR [facility] [place] [facility] Encounter Notes: All associated encounter notes This section contains the clinical notes associated to the Encounter. Date/Time Encounter Note(s) Provider Source Aug 08, 2024 10:54 AM PREVENTIVE MEDICIN E NURSING NOTE: LOCAL TITLE: CLINICAL REMINDERS/NURSING STANDARD TITLE: PREVENTIVE MEDICINE NURSING NOTE DATE OF NOTE: AUG 08, 2024@10:54 ENTRY DATE: AUG 08, 2024@10:54:26 AUTHOR: ELAINE KIM COSIGNER: URGENCY: STATUS: COMPLETED Advance Directive Screen MH AD: Patient does not have a completed advance directive on file at any facility, [facility] or outside. S/he is not interested in completing one at this time. The patient received education about Advance Directives and written notification of his/her rights. Suicide Screen: C-SSRS Screening [place] Suicide Severity Rating Scale (C-SSRS) screener 1. Over the past month, have you wished you were or wished you could go to sleep and not wake up? No 2. Over the past month, have you had any actual thoughts of killing yourself? No 3. Over the past month, have you been thinking about how you might do this? Response not required due to responses to other questions. 4. Over the past month, have you had these thoughts and had some intention of acting on them? Response not required due to responses to other questions. 5. Over the past month, have you started to work out or worked out the details of how to kill yourself? Response not required due to responses to other questions. 6. If yes, at any time in the past month did you intend to carry out this plan? Response not required due to responses to other questions. 7. In your lifetime, have you ever done anything, started to do anything, or prepared to do anything to end your life (for example, collected pills, obtained a gun, gave away valuables, went to the roof but didn't jump)? No 8. If YES, was this within the past 3 months? Response not required due to responses to other questions. BMI>30/>24.99 High Risk: Patient declines to discuss weight management. Patient declined weight discussion. Discussed revisiting at a future visit. Depression Screening: Perform PHQ-2 A PHQ-2 screen was performed. The score was 0 which is a negative screen for depression. Over the past two weeks, how often have you been bothered by the following problems? 1. Little interest or pleasure in doing things Not at all 2. Feeling down, depressed, or hopeless Not at all Pneumococcal Conjugate Vaccine (PCV15/PCV20): Refuses PCV vaccine Immunization: PNEUMOCOCCAL CONJUGATE, UNSPECIFIED FORMULATION Refusal Reason: PATIENT DECISION Patient refuses all immunization(s) in the PneumoPCV group Date Documented: 08/08/24 10:55 Tobacco Use Screening: The patient is a former tobacco user. The patient quit five to less than fifteen years ago. Influenza Immunization: Influenza, Trivalent, Preservative Free (Fluarix-Syringe) Administered: INFLUENZA, SPLIT VIRUS, TRIVALENT, PF Date Administered: Aug 08, 2024 10:55 Pipe Coverer And Insulator: [employer] Financial Lot: [id number] Exp Date: 2025 [facility]: [id number] Admin Route/Site: INTRAMUSCULAR/RIGHT DELTOID Dosage: 0.5mL Vaccine Information Statement(s): INFLUENZA(FLU) VACC(INACTIVATED OR RECOMBINANT)VIS Jun 20, 2021 (SPANISH) Order By: Policy Administered By: Elaine Kim The Influenza Vaccine Information Statement (VIS) was reviewed with the patient/caregiver which lists the benefits and risks of the vaccine and the risks of not receiving the Influenza vaccine. The patient/caregiver denied any prior severe reaction to this vaccine or its components or a severe allergic reaction, such as anaphylaxis, to any vaccine or any injectable therapy. The patient/caregiver gave verbal consent to receive the vaccine. Td / Tdap Immunization: The patient declines to receive the recommended dose of Td/Tdap vaccine. Immunization: TD(ADULT) UNSPECIFIED FORMULATION Refusal Reason: PATIENT DECISION Patient refuses all immunization(s) in the Td group Date Documented: 08/08/24 10:55 Alcohol Use Screen (AUDIT-C): Alcohol Screen: SCREEN FOR ALCOHOL (AUDIT-C) An alcohol screening test (AUDIT-C) was negative (score=0). 1. How often did you have a drink containing alcohol in the past year? Consider a drink to be a 12 ounce can or bottle of regular beer, 8 ounces of malt liquor, a 5 ounce glass of table wine, or a 1.5 ounce shot of liquor (like scotch, gin, or vodka). Never 2. How many drinks containing alcohol did you have on a typical day when you were drinking in the past year? Response not required due to responses to other questions. 3. How often did you have six or more drinks on one occasion in the past year? Response not required due to responses to other questions. COVID-19 Immunization: Refused Moderna Monovalent COVID-19 vaccine Immunization: COVID-19 (MODERNA), MRNA, LNP-S, PF, 50 MCG/0.5 ML (AGES 12+ YEARS) Refusal Reason: PATIENT DECISION Patient refuses all immunization(s) in the COVID-19 group Date Documented: 08/08/24 10:55 Sexual Orientation: The patient thinks of their sexual orientation as: Straight or Heterosexual RHS Screen: RHS Screen Environmental Check Upon inquiry, the individual reports that the environment is safe to proceed. Informed Consent to Screen and Document The individual consents to proceed with screening. The individual consents to documentation of responses. PRIMARY SCREEN: In the past 12 months, how often did a current or former intimate partner (e.g., boyfriend, girlfriend, , , sexual partner): 1. Scream or curse at you Never 2. Insult or talk down to you Never 3. Threaten you with harm Never 4. Physically hurt you Never 5. Force or pressure you to have sexual contact against your will, or when you were unable to say no Never ?? The HITS tool (items 1-4 above) is US copyright protected by Tito Ortega MD, and the user has full rights to use it throughout the ID system. PRIMARY SCREEN RESULT: The Primary Screen is NEGATIVE. The individual answered never to all forms of IPV above (i.e., answered never to all 5 items) The individual accepts education and/or resources: No EDUCATION: The individual indicated readiness to learn. Education offered during this session as noted above. The individual indicated understanding by asking relevant questions and making appropriate comments. No barriers to learning were observed or identified. /alex/ ELAINE KIM LPN Licensed Practical Nurse Signed: 08/08/2024 10:56 ELAINE KIM Aug 08, 2024 10:37 AM PHYSICIAN NOTE: LOCAL TITLE: NOTE STANDARD TITLE: PHYSICIAN NOTE DATE OF NOTE: AUG 08, 2024@10:37 ENTRY DATE: AUG 08, 2024@10:37:51 AUTHOR: LILIANA PAN EXP COSIGNER: URGENCY: STATUS: COMPLETED HISTORY OF PRESENT ILLNESS: first time seen , transferred from Dr Medellin CHASITY WARREN, is a 39 yo MALE , who presents at the [facility] to meet the new PCP. Active problems - Computerized Problem List is the source for the following: -Hyperlipidemia -Essential hypertension -Chronic PTSD -Benign neoplasm of pituitary gland The following VA and Non-VA meds were reconciled with patient: Active Outpatient Medications (including Supplies): Issue Date Status Last Fill Active Outpatient Medications Refills Expiration 1) ATORVASTATIN CALCIUM 40MG TAB Qty: 45 ACTIVE Issu:05-04-24 for 90 days Sig: TAKE ONE-HALF TABLET Refills: 0 Last:07-23-24 BY MOUTH AT BEDTIME FOR CHOLESTEROL Expr:05-05-25 2) BUPROPION HCL 300MG 24HR SA TAB Qty: 90 ACTIVE Issu:11-09-23 for 90 days Sig: TAKE ONE TABLET BY Refills: 0 Last:02-06-24 MOUTH ONCE DAILY FOR DEPRESSION Expr:11-09-24 3) CALCIUM 200MG (CA CITRATE-950MG) TAB ACTIVE (S) Issu:05-27-24 Qty: 600 for 90 days Sig: TAKE THREE Refills: 2 Last:09-23-24 TABLETS BY MOUTH TWICE DAILY Expr:05-28-25 4) CHOLECALCIF 50MCG (D3-2,000UNIT) TAB ACTIVE (S) Issu:05-27-24 Qty: 100 for 90 days Sig: TAKE ONE Refills: 2 Last:09-12-24 TABLET BY MOUTH ONCE DAILY FOR VITAMIN Expr:05-28-25 SUPPLEMENTATION 5) LISINOPRIL 30MG TAB Qty: 90 for 90 days ACTIVE Issu:05-04-24 Sig: TAKE ONE TABLET BY MOUTH ONCE Refills: 0 Last:07-23-24 DAILY TO CONTROL BLOOD PRESSURE Expr:05-05-25 6) TESTOSTERONE 1.62% 20.25MG/PUMP TOP GEL ACTIVE Issu:03-02-24 Qty: 1 for 30 days Sig: APPLY 2 PUMPS Refills: 0 Last:08-07-24 (40.5 MG) TOPICALLY ONCE DAILY FOR LOW Expr:09-02-24 TESTOSTERONE 7) VENLAFAXINE HCL 75MG 24HR SA CAP Qty: ACTIVE Issu:11-09-23 270 for 90 days Sig: TAKE THREE Refills: 0 Last:03-16-24 CAPSULES BY MOUTH ONCE DAILY Expr:11-09-24 Start Date Active Non-VA Medications Refills Expiration 1) Non-VA MULTIVITAMIN/MINERALS CAP/TAB ACTIVE Si TABLET BY MOUTH ONCE DAILY 2) Non-VA OTHER CAP/TAB Sig: GARLIC BY ACTIVE MOUTH ONCE DAILY 3) Non-VA OTHER CAP/TAB Sig: SUBOXONE BY ACTIVE MOUTH 10 Total Medications ALLERGIES: ========= Patient has answered NK[facility] LAB HISTORY: no new labs HISTORY: PERIOD OF SERVICE - [facility] FROM May TO Jul COMBAT SERVICE INDICATED: No REVIEW OF SYSTEMS: No fever, chills No chest pain, shortness of breath at rest or with ambulation No cough or wheezing No abdominal pain nausea or vomiting No joints pain No headaches or dizziness PHYSICAL EXAMINATION: WD/obese seems to be in NAD S1-S2 positive, RRR RODRÍGUEZ, CTA bilateral Abdomen soft nontender to palpation, obese No edema lower extremities AAO x3; ambulates without help ASSESSMENT/PLAN: -Hyperlipidemia continue atorvastatin- LDL borderline elevated for patient with hypertension should be less than 100 Advised to continue healthy diet and exercise as tolerated he states he watches his diet [employer] started running 3 weeks ago for 30 minutes every other day Also he states hikes a total of 50 miles every week -Essential hypertension-blood pressure controlled today in office He states monitors blood pressure weekly and his systolic blood pressure is usually in 120s -Chronic PTSD-managed by mental health team -Benign neoplasm of pituitary gland-managed by Dr. Alvarado FOLLOW UP: ========= RTC - 6 months follow up for htn, hlp, Today's documentation was made using voice recognition software. This note may contain spelling/grammatical errors secondary to this software. Every effort is made to correct errors, but if mistakes are found they need to be taken in context. UPCOMING APPOINTMENTS: 08/08/2024 11:00 CWM/SO/PACT EIGHT WH 08/22/2024 10:00 CWM/NO/XRAY NON-COUNT 01/11/2025 09:30 NHM/ENDOCRINE No barriers; Patient understands and agrees to current treatment plan. If pt has any questions, concerns, or changes in current health status he/she will call or [facility]. Medication Reconciliation: Outpatient: Has the patient been taking medications as documented in the EMLR? YES: The patient has been taking medications as documented in the EMLR. Essential Medication List for Review used to complete this medication reconciliation. INCLUDED IN THIS LIST: Alphabetical list of active outpatient prescriptions dispensed from this [facility] (local) and dispensed from another VA or DoD facility (remote) as well as inpatient orders (local, pending and active), local clinic medications, locally documented non-VA medications, and local prescriptions that have or been discontinued in the past 90 days. - All changes in medications, including all non-VA/Herbal/OTC medications were entered into [facility]. - If there were any medications the patient should no longer take, they were discontinued. - The patient/caregiver was instructed to update this list, discard old lists, and take this list to the next appointment, whether with a VA or non-VA provider. JLV Link Data on this list may not be complete. Please check JLV. Allergies/ADRs (Tool #5) FACILITY ALLERGY/ADR -------- No Remote Allergy/ADR Data available for this patient ID [facility] [place] [facility] No Known Allergies Med Recon [facility] (Tool #1) INCLUDED IN THIS LIST: Alphabetical list of active outpatient prescriptions dispensed from this ID (local) and dispensed from another ID or DoD facility (remote) as well as inpatient orders (local pending and active), local clinic medications, locally documented non-VA medications, and local prescriptions that have or been discontinued in the past 90 days. Non-VA Meds Last Documented On: Jul 13, 2022 NOTE The display of VA prescriptions dispensed from another VA or DoD facility (remote) is limited to active outpatient prescription entries matched to National Drug File at the originating site and may not include some items such as investigational drugs, compounds, etc. NOT INCLUDED IN THIS LIST: Medications self-entered by the patient into personal health records (i.e. [employer]) are NOT included in this list. Non-VA medications documented outside this ID, remote inpatient orders (regardless of status) and remote clinic medications are NOT included in this list. The patient and provider must always discuss medications the patient is taking, regardless of where the medication was dispensed or obtained. OUTPT ATORVASTATIN CALCIUM 40MG TAB (Status = Active) TAKE ONE-HALF TABLET BY MOUTH AT BEDTIME FOR CHOLESTEROL Rx# [id number] Last Released: 07/14/24 Qty/Days Supply: 45/ Rx Expiration Date: 05/05/25 Refills Remainin OUTPT BUPROPION HCL 300MG 24HR SA TAB (Status = Active) TAKE ONE TABLET BY MOUTH ONCE DAILY FOR DEPRESSION Rx# [id number] Last Released: 01/28/24 Qty/Days Supply: 90 Rx Expiration Date: 11/09/24 Refills Remainin Indication: FOR DEPRESSION OUTPT CALCIUM 200MG (CA CITRATE-950MG) TAB (Status = Discontinued) TAKE THREE TABLETS BY MOUTH TWICE DAILY Rx# [id number] Last Released: 03/29/24 Qty/Days Supply: 600/ Rx Expiration Date: 07/20/24 Refills Remainin Indication: FOR CALCIUM SUPPLEMENTATION OUTPT CALCIUM 200MG (CA CITRATE-950MG) TAB (Status = Active/Suspended) TAKE THREE TABLETS BY MOUTH TWICE DAILY Rx# [id number] Last Released: 06/29/24 Qty/Days Supply: 600/ Rx Expiration Date: 05/28/25 Refills Remainin Indication: FOR CALCIUM SUPPLEMENTATION OUTPT CHOLECALCIF 50MCG (D3-2,000UNIT) TAB (Status = Active/Suspended) TAKE ONE TABLET BY MOUTH ONCE DAILY FOR VITAMIN SUPPLEMENTATION Rx# [id number] Last Released: 06/16/24 Qty/Days Supply: 100/90 Rx Expiration Date: 05/28/25 Refills Remainin OUTPT LISINOPRIL 30MG TAB (Status = Active) TAKE ONE TABLET BY MOUTH ONCE DAILY TO CONTROL BLOOD PRESSURE Rx# [id number] Last Released: 07/14/24 Qty/Days Supply: 90 Rx Expiration Date: 05/05/25 Refills Remainin Non-VA MULTIVITAMIN/MINERALS CAP/TAB TAKE ONE TABLET BY MOUTH ONCE DAILY Non-VA OTHER CAP/TAB TAKE GARLIC BY MOUTH ONCE DAILY Non-VA OTHER CAP/TAB TAKE SUBOXONE BY MOUTH OUTPT TESTOSTERONE 1.62% 20.25MG/PUMP TOP GEL (Status = Active) APPLY 2 PUMPS (40.5 MG) TOPICALLY ONCE DAILY FOR LOW TESTOSTERONE Rx# [id number] Last Released: 08/08/24 Qty/Days Supply: 12/14 Rx Expiration Date: 09/02/24 Refills Remainin Indication: FOR LOW TESTOSTERONE OUTPT VENLAFAXINE HCL 75MG 24HR SA CAP (Status = Active) TAKE THREE CAPSULES BY MOUTH ONCE DAILY Rx# [id number] Last Released: 03/08/24 Qty/Days Supply: 270/90 Rx Expiration Date: 11/09/24 Refills Remainin SUPPLIES /alex/ LILIANA PAN MD PRIMARY CARE PHYSICIAN Signed: 08/08/2024 11:30 LILIANA PAN [facility]
--- OUTSIDE RECORDS SUMMARY | 2024-12-08 12:32 | XMS_ITS | Clinical Summary ---
Author Organization [facility] Address [address] [place] [address] Care Team Providers Care Laboratory Monitor Name Role Phone Princess Medellin MD Primary Care Provider [phone] Allergies Active Allergy Reactions Criticality Noted Date Comments Clindamycin Diarrhea 11/08/2017 Medications Medication Sig Dispensed Refills Start Date End Date Status lisinopril (PRINIVIL,ZESTRIL) tablet 10 mg Take 30 mg by mouth daily. 0 Active mirtazapine (REMERON) 30 MG tablet Take 45 mg by mouth every night at bedtime. 0 Active LORazepam (ATIVAN) 0.5 MG tablet Take 0.5 mg by mouth every 6 (six) hours as needed. 0 Active HYDROcodone-acetamino phen (NORCO) 5-325 MG per tablet Take 1 tablet by mouth every 6 (six) hours as needed for pain. 20 tablet 0 11/08/2017 Active Social History Tobacco Use Types Packs/Day Years Used Date Smoking Tobacco: Every Day Cigarettes 0.3 Smokeless Tobacco: Never Alcohol Use Standard Drinks/Week Comments No 0 (1 standard drink = 0.6 oz pur e alcohol) Sex and Gender Information Value Date Recorded Sex Assigned at Not on file Gender Identity Not on file Sexual Orientation Not on file Last Filed Vital Signs Vital Sign Reading Time Taken Comments Blood Pressure 160/100 11/08/2017 6:04 PM EST Pulse 114 11/08/2017 6:04 PM EST Temperature 37.3 ??C (99.2 ??F) 11/08/2017 6:04 PM ES T Respiratory Rate 15 11/08/2017 6:04 PM EST Oxygen Saturation 99% 11/08/2017 6:04 PM EST Inhaled Oxygen Concentration - - Weight - - Height - - Body Mass Index - - Plan of Treatment Health Maintenance Due Date Last Done Comments Hepatitis B Vaccines (1 of 3 - 3-dose series) 1986 Hepatitis C Screening 1986 COVID-19 Vaccine (#1) 1986 Pneumococcal Vaccine (1 of 2 - PCV) 1992 Depression Screening 1998 Preventative Health Evaluation 2004 DTap / Tdap / Td (1 - Tdap) 2005 Influenza Vaccine (#1) 2024 RSV Ped < 20 months Aged Out No longe r eligible based on patient's age to complete this topic Care Teams Laboratory Monitor Relationship Specialty Start Date End Date Princess Medellin MD [address] [place] [address] PCP - General Internal Medicine 11/08/17
--- OUTSIDE RECORDS SUMMARY | 2024-12-08 12:32 | XMS_ITS | Encounter Summary ---
Author Name [facility] Address [address] [place] [address] Care Team Providers Care [place] Operator Name Role Phone REJI PITTS Primary Care [...] Salazar's Name Patient's Relationship to Policy [facility] POLIC E DEPT May 15, 2024 [id number] [phone] RIAZ WARREN IK PATIENT [facility] OF [facility] CE ORGANIZAT ION [facility] POLIC E DEPT May 15, 2024 [id number] [phone] BRIANAER IK PATIENT [place] PRESCRIPT ION RX May 15, 2024 [id number] RIAZ WARREN IK PATIENT [employer] POINT [facility] SERVICE [facility] May 15, 2017 [id number] [phone] RIAZ WARREN IK PATIENT CIGNA [facility] MENTAL HEALTH [facility] May 15, 2017 [id number] RIAZ WARREN IK PATIENT C[employer] PHARMAC[facility] PRESCRIPT ION [facility] May 15, 2017 [id number] RIAZ WARREN PATIENT Selected Encounter This section includes the information on record at [facility] for the Encounter. Date/Time Encounter Type Encounter Description Reason Pro vider Source IHE Encounter Template Text not used by VA
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
--- OUTSIDE RECORDS SUMMARY | 2024-12-08 12:33 | XMS_ITS | Clinical Summary ---
[facility] Address [address] [place] [address] Care Team Providers Care Promotional Advertising Assistant Name Role Phone Jayden Sharp MD Primary Care Provider [phone] Surgical History Surgery Date Site/Laterality Comments KNEE SURGERY 2012 PROCEDURE: HISTORICAL KNEE SURGERY; COMMENT: meniscus repair UPPER GASTROINTESTINAL ENDOSCOPY 07/06/2016 PROCEDURE: SC UPPER GI ENDOSCOPY PERFORMED; COMMENT: normal; duodenal bx: normal. Medical History Medical History Date Comments Hypertension DX:Hypertension PTSD (post-traumatic stress disorder) DX:PTSD (post-traumatic stress disorder) Family History Medical History Relation Name Comments Other: Skin cancer Father Lung cancer Mother Stomach cancer Uncle 1 maternal uncl e Relation Name Status Comments Father parkinsons, CA/ CAD Mother lung cancer Uncle 1 Uncle 2 Social History Tobacco Use Types Packs/Day Years Used Date Smoking Tobacco: Every Day Cigarettes Smokeless Tobacco: Current Alcohol Use Standard Drinks/Week Comments Yes 0 (1 standard drink = 0.6 oz pur e alcohol) Sex and Gender Information Value Date Recorded Sex Assigned at Not on file Gender Identity Not on file Sexual Orientation Not on file Obstetrics History Plan of Treatment Health Maintenance Due Date Last Done Comments Hepatitis B Vaccines (1 of 3 - 19+ 3-dose series) 2005 COVID-19 Vaccine (2023-2 5 season) 2024 Influenza Vaccine (#1) 2024 09/11/2015 DTaP,Tdap,and Td Vaccines (2 - Td or Tdap) 04/17/2025 04/17/2015 HIB Vaccines Aged Out No longer eligi ble based on patient's age to complete this topic HPV Vaccines Aged Out No longer eligi ble based on patient's age to complete this topic Hepatitis A Vaccines Aged Out No long er eligible based on patient's age to complete this topic IPV Vaccines Aged Out No longer eligi ble based on patient's age to complete this topic MMR Vaccines Aged Out No longer eligi ble based on patient's age to complete this topic Meningococcal ACWY Vaccine Aged Out N o longer eligible based on patient's age to complete this topic Pneumococcal Vaccine: Pediat rics (0 to 5 Years) and At-Risk Patients (6 to 64 Years) Aged Out No longer eligi ble based on patient's age to complete this topic RSV Immunization Patients Un kate 20 months Aged Out No longer eligible b ased on patient's age to complete this topic Varicella Vaccines Aged Out No longer eligible based on patient's age to complete this topic Care Teams Promotional Advertising Assistant Relationship Specialty Start Date End Date Jayden Sharp MD [address] [place] [id number] PCP - General Internal Medicine 07/16/16
--- OUTSIDE RECORDS SUMMARY | 2024-12-08 12:33 | XMS_ITS ---
Author Name [facility] [place] [facility] [place] Address [address] [place] [address] Care Team Providers Care Therapeutic Sales Specialist Name Role Phone REJI PITTS Primary Care [...] Salazar's Name Patient's Relationship to Policy Salazar [facility] CE ORGANIZAT ION [facility] E DEPT May 15, 2024 [id number] [phone] RIAZ WARREN IK PATIENT BCBS OF [facility] CE ORGANIZAT ION [facility] E DEPT May 15, 2024 [id number] [phone] BRIANAER IK PATIENT [facility] PRESCRIPT ION RX May 15, 2024 [id number] [phone] RIAZ WARREN IK PATIENT [employer] POINT OF SERVICE [facility] May 15, 2017 [id number] RIAZ WARREN IK PATIENT CIGNA [facility] May 15, 2017 [id number] RIAZ WARREN NATALIE PATIENT [employer] [facility] PRESCRIPT [facility] May 15, 2017 [id number] BRIANARIAZ NATALIE PATIENT Selected Encounter This section includes the information on record at [place] for the Encounter. Date/Time Encounter Type Encounter Description Reason Provider Source Jul 10, 2024 03:30 PM OFFICE O/P EST MOD 30 MIN ENDOCRINOLOGY ICD-10-CM M85.80 Oth disrd of bone density and structure, unspecified site ALVARADOSAHRA Susie Encounter Template Text not used by PA Assessments - Encounter Diagnoses This section includes the primary and secondary diagnoses documented for the Encounter. Date/Time Primary/Secondary Diagnosis Diagnosis Name Provider Source Jul 26, 2024 05:44 AM PRIMARY Oth disrd of bone density and structure, unspecified site ROCA,SAHRA [place] [facility] [place] [facility] Jul 26, 2024 05:44 AM SECONDARY Benign neoplasm of pituitary gland ROCA,[facility] [place] [facility] Jul 26, 2024 05:44 AM SECONDARY Hyperglycemia, unspecified ROCA,[facility] [place] [facility] Jul 26, 2024 05:44 AM SECONDARY Obesity, unspecified ALVARADO,[facility] [place] [facility] Jul 26, 2024 05:44 AM SECONDARY Testicular hypofunction ALVARADO,[facility] [place] [facility] Plan of Treatment: Future Appointments (+ 6 months) and Future Tests (+/- 45 days) The Plan of Treatment section includes future care activities for the patient from all [place] treatmentfacilities. This section includes future appointments and future orders which are active, pending or scheduled. Future Appointments This section includes appointments that were scheduled to occur 6 months from the date of the Encounter, up to a maximum of 20 appointments. The data comes from all [place] treatment facilities. Appointment Date/Time Appointment Type Appointme nt Facility Name Aug 01, 2024 05:40 PM AMBULATORY - MEDICINE [place] [facility] [place] [facility] Aug 08, 2024 11:00 AM [facility] Sep 01, 2024 10:00 AM AMBULATORY - NONE [place] [facility] [place] [facility] Dec 20, 2024 08:50 AM AMBULATORY - MEDICINE [facility] Active, Pending, and Scheduled Orders This section includes a listing of several types of active, pending, and scheduled orders, including clinic medications orders, diagnostic test orders, procedure orders and consult orders; where the start date of the order is 45 days before the date of the Encounter or 45 days after the date of theEncounter. The data comes from all [place] treatment facilities. Test Date/Time Test Type Test Details Facility Name Aug 05, 2024 12:00 AM Laboratory - Chemi stry Order BASIC METABOLIC PANEL (fasting) BLOOD (SST-SERUM) [facility] Aug 05, 2024 12:00 AM Laboratory - Chemi stry Order LIPID PANEL FASTING BLOOD (SST-SERUM) [facility] 21, 2024 12:00 AM Laboratory - Chemi stry Order LIVER FUNCTION BLOOD (SST-SERUM) [facility] 21, 2024 12:00 AM Laboratory - Chemi stry Order HEMOGLOBIN A1C PANEL BLOOD (LAV-BLOOD) [facility] 21, 2024 12:00 AM Laboratory - Chemi stry Order TSH BLOOD (SST-SERUM) [facility] 21, 2024 12:00 AM Laboratory - Chemi stry Order CBC AND DIFF (AUTO) BLOOD (LAV-BLOOD) [facility] 21, 2024 12:00 AM Laboratory - Chemi stry Order URINALYSIS URINE [facility] Aug 08, 2024 12:00 AM Laboratory - Chemi stry Order LIVER FUNCTION BLOOD (SST-SERUM) [facility] 24, 2024 12:00 AM Laboratory - Chemi stry Order TSH BLOOD (SST-SERUM) [facility] Lab Results: +/- 30 days of the encounter This section includes the Chemistry and Hematology Lab Results on record with PA for the patient. Radiology Reports and Pathology Reports are provided separately, in subsequent sections. Lab Results This section contains the Chemistry/Hematology Results that were resulted 30 days before or 30 daysafter the date of the Encounter. Date/Time Source Result Type Result - Unit Interpretation Reference Range Comment Jun 28, 2024 11:58 AM [facility] TESTOSTERONE, TOTAL (WHV) Specimen Type: SERUM No comment entered. Ordering Provider: SAHRA ALVARADO Report Released Date/Time: May 27, 2024 06:04 AM Reporting Lab: [facility] [address] [address] Performing Lab: [place] [facility] [place] [facility] [address] [address] TESTOSTERONE , TOTAL (WHV) 721.53 ng/dL 220.00-892. 00 Jun 28, 2024 11:58 AM [place] [facility] [place] [facility] PTH INTACT Specimen Type: SERUM No comment entered. Ordering Provider: SAHRA ALVARADO Report Released Date/Time: May 27, 2024 06:04 AM Reporting Lab: [facility] [place] [facility] [address] [address] Performing Lab: [facility] [place] [facility] [address] [address] PTH INTACT 33.7 pg/mL 10-65 Jun 28, 2024 11:58 AM [facility] PSA Specimen Type: SERUM No comment entered. Ordering Provider: SAHRA ALVARADO Report Released Date/Time: May 27, 2024 06:04 AM Reporting Lab: [facility] [place] [facility] [address] [address] Performing Lab: [facility] [place] [facility] [address] [address] PSA 0.42 ng/mL 0.00-4.00 Jun 28, 2024 11:58 AM [facility] CALCIUM Specimen Type: SERUM No comment entered. Ordering Provider: SAHRA ALVARADO Report Released Date/Time: May 27, 2024 06:04 AM Reporting Lab: [facility] [place] [facility] [address] [address] Performing Lab: [place] [facility] [place] [facility] [address] [address] CALCIUM 9.2 mg/dL 8.5-10.2 Jun 28, 2024 11:58 AM [facility] [place] [facility] CBC Specimen Type: BLOOD No comment entered. Ordering Provider: SAHRA ALVARADO Report Released Date/Time: May 27, 2024 06:04 AM Reporting Lab: [place] [facility] [place] [address] [address] Performing Lab: [facility] [address] [address] WBC 7.20 10*3/uL 4.50-11.00 RBC 5.34 10*6/uL 4.23-5.66 HGB 15.3 g/dL 12.8-17 HCT 44.3 39.2-50.4 MCV 83.0 fL 82-99 MCHC 34.5 g/dL 30.8-35.1 PLT 272 10*3/uL 140-360 RDW-CV 12.6 12.0-16.0 MCH 28.7 pg 26.2-32.6 Jun 28, 2024 11:58 AM [facility] BASIC METABOLIC PANEL (non-fasting) Specimen Type: SERUM No comment entered. Ordering Provider: SAHRA ALVARADO Report Released Date/Time: May 27, 2024 06:04 AM Reporting Lab: [facility] [address] [address] Performing Lab: [facility] [address] [address] UREA NITROGEN 13 mg/dL 7-25 GLUCOSE 94 mg/dL 65-100 SODIUM 137 mmol/L 135-145 POTASSIUM 4.5 mmol/L 3.5-5.0 CHLORIDE 104 mmol/L 100-110 CO2 25 meq/L 20-30 CREATININE, Serum 1.03 mg/dL 0.50-1.40 eGFR(CKD-EPI 2020) >90 mL/min >60 Vital Signs: All taken on the encounter date This section contains inpatient and outpatient Vital Signs collected on the date of the Encounter. Date/Time Temperature Pulse Blood Pressure Respiratory Rate SP02 Pain Height Weight Body Mass Index Source Jul 10, 2024 03:42 PM 97.9 100 119/79 16 98 0 234 36 [facility] Social History: Smoking Status (Most current) and Tobacco Use (All prior to encounter date) This section includes the most current, and the historical, smoking and tobacco- related health factors from the [place] facility where the Encounter took place. Current Smoking Status This section includes the most current smoking, or tobacco-related health factor, from the [place] facility where the Encounter took place. Date/Time Current Smoking Status Comment Facil ity Jan 19, 2022 09:16 AM VA-TOBACCO FORMER USER [facility] Tobacco Use History This section includes a history of the smoking, or tobacco-related health factors, that were collected on or before the date of the Encounter. The data comes from the [facility] where the Encounter took place. Date/Time Smoking Status/Tobac co Use Comment Facility Jan 19, 2022 09:16 AM VA-TOBACCO QUIT 1 TO < 5 YRS [facility] Apr 30, 2014 12:24 PM CURRENT SMOKER [facility] Apr 30, 2014 12:24 PM V1-PT DECLINES REF TO TOBACCO CESS PRGM [facility] Apr 30, 2014 12:24 PM V1-PT DECLINES TOBACCO CESSATION MEDS [facility] Apr 30, 2014 12:24 PM V1-PT NOT INTERESTED IN QUIT TOBACCO USE [facility] Jul 16, 2011 10:42 AM CURRENT SMOKER half pack a day [facility] Jul 16, 2011 10:42 AM V1-PT NOT INTERESTED IN QUIT TOBACCO USE [facility] Sep 24, 2009 09:21 AM CURRENT SMOKER 1/2 ppd [facility] Sep 24, 2009 09:21 AM V1-PT THINKING ABOUT QUIT TOBACCO USE [facility] Feb 28, 2009 10:43 AM V1-PT THINKING ABOUT QUIT TOBACCO USE [facility] Sep 21, 2008 10:16 AM V1-PT READY TO QUIT TOBACCO USE [facility] Sep 21, 2008 09:34 AM CURRENT SMOKER ONE PPD X 9 YEARS [facility] Aug 31, 2008 10:16 AM CURRENT SMOKER 1 pack a day [facility] Encounter Notes: All associated encounter notes This section contains the clinical notes associated to the Encounter. Date/Time Encounter Note(s) Provider Source Jul 10, 2024 03:47 PM PHYSICIAN NOTE: LOCAL TITLE: NOTE STANDARD TITLE: PHYSICIAN NOTE DATE OF NOTE: JUL 10, 2024@15:47 ENTRY DATE: JUL 10, 2024@15:47:49 AUTHOR: SAHRA ALVARADO EXP COSIGNER: URGENCY: STATUS: COMPLETED NOTE Has ADDENDA CC: benign neoplasm of pituitary gland, osteopenia, testicular hypofunction, hyperglycemia, obesity HPI: No unusual h/a. Per Prior note Weight 228 lbs. States weight loss is big time important to him. He greatly increased his activity. Reports that he has lost 15-20 lbs in past 8 mos or so. He states that he as also made dietary changes. Initially this was difficult, but becoming easier. He is motivated by his brother dying young of CAD and to be present for dtr Current weight 234. BMI 35.65 DOing a lot of hiking. No falls or fractures calcium fills up to date. Taking about one serving of mild a day. Confirms calcium citrate 600 mg BID. More energy, better libido on testosterone, sexual function OK. Taking testosterone gel one pump daily. All recent endocrine labs were reviewed with the patient. 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 Left hip . Selected lumbar vertebral bodies . FINDINGS: DATA: HIP: BMD of 0.8, T score is -0.8. L-SPINE: BMD of 0.9, T score -1.8 Active problems - Computerized Problem List is the source for the followin. Exposure to potentially hazardous substance ([facility] [id number]) 2. Osteopenia 3. Benign neoplasm of pituitary gland MRI pitiutary 4. Hyperglycemia 5. Obesity 6. Testicular hypofunction 7. BPH - benign prostatic hyperplasia 8. Opioid dependence, on agonist therapy 9. Hyperlipidemia 10. Lipoma 11. Low back pain 12. Essential hypertension 13. Tobacco use 14. History of operative procedure on knee 15. Posttraumatic stress disorder 16. Essential hypertension 17. Routine General Medical Examination at a Health Care Facility * Active Outpatient Medications (including Supplies): Active Outpatient Medications Status 1) ATORVASTATIN CALCIUM 40MG TAB TAKE ONE-HALF TABLET BY ACTIVE MOUTH AT BEDTIME FOR CHOLESTEROL 2) BUPROPION HCL 300MG 24HR SA TAB TAKE ONE TABLET BY ACTIVE MOUTH ONCE DAILY FOR DEPRESSION 3) CALCIUM 200MG (CA CITRATE-950MG) TAB TAKE THREE ACTIVE TABLETS BY MOUTH TWICE DAILY 4) CHOLECALCIF 50MCG (D3-2,000UNIT) TAB TAKE ONE TABLET ACTIVE BY MOUTH ONCE DAILY FOR VITAMIN SUPPLEMENTATION 5) LISINOPRIL 30MG TAB TAKE ONE TABLET BY MOUTH ONCE ACTIVE DAILY TO CONTROL BLOOD PRESSURE 6) TESTOSTERONE 1.62% 20.25MG/PUMP TOP GEL APPLY 2 PUMPS ACTIVE (40.5 MG) TOPICALLY ONCE DAILY FOR LOW TESTOSTERONE 7) VENLAFAXINE HCL 75MG 24HR SA CAP TAKE THREE CAPSULES ACTIVE BY MOUTH ONCE DAILY Active Non-VA Medications Status 1) Non-VA MULTIVITAMIN/MINERALS CAP/TAB 1 TABLET BY ACTIVE MOUTH ONCE DAILY 2) Non-VA OTHER CAP/TAB GARLIC BY MOUTH ONCE DAILY ACTIVE 3) Non-VA OTHER CAP/TAB SUBOXONE BY MOUTH ACTIVE 10 Total Medications SHx: Lives with and dtr ROS: no cough or fever PE: affect pleasant appropriate speaking easily in full sentences A/P: Active problems - Computerized Problem List is the source for the followin. Osteopenia continue calcium and vitamin D, BMD now 3. Benign neoplasm of pituitary gland Pituitary MRI now 4. Hyperglycemia currently normal. Microalb 5. Obesity Recommended calorie maxine tonia, 1500 kcal target 6. Testicular hypofunction Continue testosterone 2 pumps daily Medication Reconciliation: Outpatient: Has the patient been taking medications as documented in the EMLR? YES: The patient has been taking medications as documented in the EMLR. Essential Medication List for Review used to complete this medication reconciliation. INCLUDED IN THIS LIST: Alphabetical list of active outpatient prescriptions dispensed from this PA (local) and dispensed from another PA or [facility] facility (remote) as well as [...] list may not be complete. Please check [employer] Allergies/ADRs (Tool #5) FACILITY ALLERGY/ADR -------- No Remote Allergy/ADR Data available for this patient [place] [facility] [place] [facility] No Known Allergies Med Recon NoGlossary (Tool #1) INCLUDED IN THIS LIST: Alphabetical list of active outpatient prescriptions dispensed from this [facility] (local) and dispensed from another PA or [facility] facility (remote) as well as inpatient orders (local pending and active), local clinic medications, locally documented non-VA medications, and local prescriptions that have or been discontinued in the past 90 days. Non-VA Meds Last Documented On: Jul 13, 2022 NOTE The display of VA prescriptions dispensed from another PA or [facility] facility (remote) is limited to active outpatient prescription entries matched to National Drug File at the originating site and may not include some items such as investigational drugs, compounds, etc. NOT INCLUDED IN THIS LIST: Medications self-entered by the patient into personal health records (i.e. [email or web address]) are NOT included in this list. Non-VA medications documented outside this PA, remote inpatient orders (regardless of status) and remote clinic medications are NOT included in this list. The patient and provider must always discuss medications the patient is taking, regardless of where the medication was dispensed or obtained. OUTPT ATORVASTATIN CALCIUM 40MG TAB (Status = Discontinued) TAKE ONE-HALF TABLET BY MOUTH AT BEDTIME FOR CHOLESTEROL Rx# [id number] Last Released: 12/11/23 Qty/Days Supply: Rx Expiration Date: 07/01/24 Refills Remainin OUTPT ATORVASTATIN CALCIUM 40MG TAB (Status = Active/Suspended) TAKE ONE-HALF TABLET BY MOUTH AT BEDTIME FOR CHOLESTEROL Rx# [id number] Last Released: 05/05/24 Qty/Days Supply: Rx Expiration Date: 05/05/25 Refills Remainin OUTPT BUPROPION HCL 300MG 24HR SA TAB (Status = Active) TAKE ONE TABLET BY MOUTH ONCE DAILY FOR DEPRESSION Rx# [id number] Last Released: 01/28/24 Qty/Days Supply: Rx Expiration Date: 11/09/24 Refills Remainin Indication: FOR DEPRESSION OUTPT CALCIUM 200MG (CA CITRATE-950MG) TAB (Status = Discontinued) TAKE THREE TABLETS BY MOUTH TWICE DAILY Rx# [id number] Last Released: 03/29/24 Qty/Days Supply: 600/90 Rx Expiration Date: 07/20/24 Refills Remainin Indication: FOR CALCIUM SUPPLEMENTATION OUTPT CALCIUM 200MG (CA CITRATE-950MG) TAB (Status = Active) TAKE THREE TABLETS BY MOUTH TWICE DAILY Rx# [id number] Last Released: 06/29/24 Qty/Days Supply: 600/90 Rx Expiration Date: 05/28/25 Refills Remainin Indication: FOR CALCIUM SUPPLEMENTATION OUTPT CHOLECALCIF 50MCG (D3-2,000UNIT) TAB (Status = Discontinued) TAKE ONE TABLET BY MOUTH ONCE DAILY FOR VITAMIN SUPPLEMENTATION Rx# [id number] Last Released: 03/18/24 Qty/Days Supply: 100/90 Rx Expiration Date: 04/27/24 Refills Remainin OUTPT CHOLECALCIF 50MCG (D3-2,000UNIT) TAB (Status = Active) TAKE ONE TABLET BY MOUTH ONCE DAILY FOR VITAMIN SUPPLEMENTATION Rx# [id number] Last Released: 06/16/24 Qty/Days Supply: 100/90 Rx Expiration Date: 05/28/25 Refills Remainin OUTPT LISINOPRIL 30MG TAB (Status = Discontinued) TAKE ONE TABLET BY MOUTH ONCE DAILY TO CONTROL BLOOD PRESSURE Rx# [id number] Last Released: 12/11/23 Qty/Days Supply: 90 Rx Expiration Date: 07/01/24 Refills Remainin OUTPT LISINOPRIL 30MG TAB (Status = Active/Suspended) TAKE ONE TABLET BY MOUTH ONCE DAILY TO CONTROL BLOOD PRESSURE Rx# [id number] Last Released: 05/05/24 Qty/Days Supply: 90 Rx Expiration Date: 05/05/25 Refills Remainin Non-VA MULTIVITAMIN/MINERALS CAP/TAB TAKE ONE TABLET BY MOUTH ONCE DAILY Non-VA OTHER CAP/TAB TAKE GARLIC BY MOUTH ONCE DAILY Non-VA OTHER CAP/TAB TAKE SUBOXONE BY MOUTH OUTPT TESTOSTERONE 1.62% 20.25MG/PUMP TOP GEL (Status = Active) APPLY 2 PUMPS (40.5 MG) TOPICALLY ONCE DAILY FOR LOW TESTOSTERONE Rx# [id number] Last Released: 07/05/24 Qty/Days Supply: 12/14 Rx Expiration Date: 10/19/24 Refills Remainin Indication: FOR LOW TESTOSTERONE OUTPT VENLAFAXINE HCL 75MG 24HR SA CAP (Status = Active) TAKE THREE CAPSULES BY MOUTH ONCE DAILY Rx# [id number] Last Released: 03/08/24 Qty/Days Supply: 270/90 Rx Expiration Date: 11/09/24 Refills Remainin SUPPLIES (Optional) Whole Health Documentation: What matters the most to you? What motivates you to be healthy? (MAP) Response: geronimo /alex/ SAHRA ALVARADO MD STAFF PHYSICIAN Signed: 07/10/2024 16:06 07/10/2024 ADDENDUM STATUS: COMPLETED Testosterone, cbc PSA calcium vitamin D basic six celestina /alex/ SAHRA ALVARADO MD STAFF PHYSICIAN Signed: 07/10/2024 16:11 SAHRA ALVARADO [facility]
--- OUTSIDE RECORDS SUMMARY | 2024-12-08 12:33 | XMS_ITS | Continuity of Care Document ---
Author Name [facility] Organization [facility] Care Team Providers Care Product Lister Name Role Phone [facility] Unavailable Unavailable Problems Combined list of problems from Department of Defense and Veterans Affairs facilities. It does not include entries that were removed or entered in error. Problem Status Onset Date Problem Type Date of Resolution Comments Source Essential hypertension Active 011 Condition [facility] Routine General Medical Examination at a Health Care Facility * (ICD-9-CM V70.0) Active 008 Condition [facility] Benign neoplasm of pituitary gland Active Condition [facility] BPH - benign prostatic hyperplasia Active Condition [place] Essential hypertension Active Condition [place] Exposure to potentially hazardous substance ([facility] [id number]) Active Condition Feb 22 4 Entered By: RICARDO PIEDRA Comment: Entered automatically through [facility] Problem List documentation program [facility] History of operative procedure on knee Active Condition Jul 27 14 Entered By: ALCIDES FONSECA Comment: R meniscus repair 10/27 [place] Hyperglycemia Active Condition [facility] Hyperlipidemia Active Condition [facility] [place] Lipoma Active Condition [facility] Low back pain Active Condition [facility] Obesity Active Condition [facility] Opioid dependence, on agonist therapy Active Condition May 31 023 Entered By: MADELYN BUSTILLO Comment: On Buprenophine NONVA [facility] Osteopenia Active Condition [facility] Posttraumatic stress disorder Active Condition May 31, 2023 Entered By: MADELYN BUSTILLO Comment: updated [place] Testicular hypofunction Active Condition [facility] Tobacco use Active Condition May 31, 2023 Entered By: MADELYN BUSTILLO Comment: Quit 2021 [place] Depressive disorder Inactive Condition 03/08/2022 Sep 01, 2017 Entered By: MADELYN BUSTILLO Comment: diagnosis updated September 01, 2017.Feb 03, 2019 Entered By: MADELYN BUSTILLO Comment: diagnosis updated February 03, 2019. 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 Condition DoD Need For Vaccination Against Combinations Of Diseases Inactive Condition DoD visit for: screening exam pulmonary tuberculosis Inactive Condition [facility] visit for: screening exam Inactive Condition [facility] visit for: services physical accession Inactive Condition [facility] Diagnosis: ICD-10-CM E29.1 Testicular hypofunction Active Diagnosis [facility] [place] [facility] Diagnosis: ICD-10-CM E66.9 Obesity, unspecified Active Diagnosis [facility] [place] [facility] Diagnosis: ICD-10-CM E78.5 Hyperlipidemia, unspecified Active Diagnosis [place] Diagnosis: ICD-10-CM M85.80 Oth disrd of bone density and structure, unspecified site Active [facility] [place] [facility] Diagnosis: ICD-10-CM F43.12 Post-traumatic stress disorder, chronic Active Diagnosis [place] Diagnosis: ICD-10-CM Z23 Encounter for immunization Active Diagnosis [place] Diagnosis: ICD-10-CM I10 Essential (primary) hypertension Active Diagnosis [place] Diagnosis: ICD-10-CM D35.2 Benign neoplasm of pituitary gland Active Diagnosis [facility] [place] [facility] Medications Combined list of outpatient medications from Department of Defense and Veterans Affairs facilities.Medications provided include 1) outpatient medications from the last 15 months, and 2) patient-reported medications. Medication Details Route Status Patient Instructions Prescription Expires Prescription Number Last Dispense Date Ordering Provider Order Date Order Qty Source ATORVASTATI N CA 40MG TAB TAKE ONE-HALF TABLET BY MOUTH AT BEDTIME FOR CHOLESTE ROL ORAL SUSPEND ED 08/09/2025 [id number] VIVIANECA RMEN F 2023 45 [place] ATORVASTATI N CA 40MG TAB TAKE ONE-HALF TABLET BY MOUTH AT BEDTIME FOR CHOLESTE ROL ORAL DISCONT INUED 05/05/2025 [id number] VIVIANECA RMEN F 2023 45 [place] ATORVASTATI N CA 40MG TAB TAKE ONE-HALF TABLET BY MOUTH AT BEDTIME FOR CHOLESTE ROL ORAL DISCONT INUED 07/01/2024 [id number] LEONIDAS FONSECA DIONI 2022 45 [place] BUPROPION HCL 300MG 24HR TAB,SA TAKE ONE TABLET BY MOUTH ONCE DAILY FOR DEPRESSI ON ORAL 11/09/2024 [id number] 4 ROOTHELEN A A 2023 90 [place] CALCIUM 200MG (CA CITRATE-950 MG) TAB TAKE THREE TABLETS BY MOUTH TWICE DAILY ORAL SUSPEND ED 05/28/2025 [id number] 5 ALVARADO,AL ICE 2023 600 [facility] CALCIUM 200MG (CA CITRATE-950 MG) TAB TAKE THREE TABLETS BY MOUTH TWICE DAILY ORAL DISCONT INUED 07/20/2024 [id number] ALVARADO,AL ICE 2022 600 [facility] CHOLECALCIF JURGEN 50MCG (2,000UNIT) TAB TAKE ONE TABLET BY MOUTH ONCE DAILY FOR VITAMIN SUPPLEME NTATION ORAL ACTIVE 05/28/2025 [id number] 5 ALVARADO,AL ICE 2023 100 [facility] CHOLECALCIF JURGEN 50MCG (2,000UNIT) TAB TAKE ONE TABLET BY MOUTH ONCE DAILY FOR VITAMIN SUPPLEME NTATION ORAL DISCONT INUED 04/27/2024 [id number] 4 ALVARADO,AL ICE 2022 100 [facility] LISINOPRIL 30MG TAB TAKE ONE TABLET BY MOUTH ONCE DAILY TO CONTROL BLOOD PRESSURE ORAL SUSPEND ED 08/09/2025 [id number] 5 JUAN PAN RMEN F 2023 90 [place] LISINOPRIL 30MG TAB TAKE ONE TABLET BY MOUTH ONCE DAILY TO CONTROL BLOOD PRESSURE ORAL DISCONT INUED 05/05/2025 [id number] 4 JUAN PAN RMEN F 2023 90 [place] LISINOPRIL 30MG TAB TAKE ONE TABLET BY MOUTH ONCE DAILY TO CONTROL BLOOD PRESSURE ORAL DISCONT INUED 07/01/2024 [id number] LEONIDAS FONSECA 2022 90 [place] MULTIVITAMI NS W/MINERALS TAB TAKE ONE TABLET BY MOUTH ONCE DAILY ORAL ACTIVE LEONIDAS FONSECA 2018 [place] NALOXONE HCL 4MG/SPRAY SOLN,SPRAY, NASAL INSTILL 1 SPRAY ONE NOSTRIL ONE TIME NEEDED FOR OPIOID OVERDOSE CALL 911 WITH ADMINIST RATION. REPEAT WITH SECOND DEVICE IF SYMPTOMS RETURN NASAL 12/09/2023 [id number] HELEN BUSTILLO 2022 2 [place] OTHER CAP/TAB TAKE GARLIC BY MOUTH ONCE DAILY ORAL ACTIVE ALVARADO,AL ICE 2021 [facility] OTHER CAP/TAB TAKE SUBOXONE BY MOUTH ORAL ACTIVE ALVARADO,AL ICE 2021 [facility] TESTOSTERON E 1.62% 20.25MG/PUM P GEL,TOP APPLY 2 PUMPS (40.5 MG) TOPICALL Y ONCE DAILY FOR LOW TESTOSTE KIRA TOPICA L ACTIVE 03/14/2025 [id number] ALVARADO,AL ICE 2023 1 [facility] TESTOSTERON E 1.62% 20.25MG/PUM P GEL,TOP APPLY 2 PUMPS (40.5 MG) TOPICALL Y ONCE DAILY FOR LOW TESTOSTE KIRA TOPICA L DISCONT INUED 01/20/2024 [id number] 4 ALVARADO,AL ICE 2022 1 [facility] TESTOSTERON E 1.62% 20.25MG/PUM P GEL,TOP APPLY 2 PUMPS (40.5 MG) TOPICALL Y ONCE DAILY FOR LOW TESTOSTE KIRA Ware 09/02/2024 [id number] 4 ALVARADO,AL ICE 2023 1 [facility] VENLAFAXINE HCL 75MG 24HR CAP,SA TAKE THREE CAPSULES BY MOUTH ONCE DAILY ORAL DISCONT INUED 05/31/2024 [id number] 3 ROOTHELEN A 2022 270 [place] VENLAFAXINE HCL 75MG 24HR CAP,SA TAKE THREE CAPSULES BY MOUTH ONCE DAILY ORAL 11/09/2024 [id number] 4 ROOTHELEN A A 2023 270 [place] Allergies, Adverse Reactions, Alerts Combined list of allergies from Department of Defense and Veterans Affairs facilities. It does not include entries that were removed or entered in error. Substance Category Reaction Severity Reaction type Status Date Reported Comments Source [id number] Drug allergy (disorder) active 06/02/2007 [facility] [place], [place] Immunizations Combined list of available immunizations from the Department of Defense and Veterans Affairs facilities. Immunization Series Date Given Administered By Site Reaction Lot Number CVX Code Drug Punch Machine Hand Status Comments Source INFLUENZA, SPLIT VIRUS, TRIVALENT, PF 2023 MARYJO HERMAN RIGHT DELTO ID [id number] 140 complet ed [facility] [place] INFLUENZA, INJECTABLE, QUADRIVALENT, PRESERVATIVE FREE 2022 FRANCISCO JAVIER BOLAÑOS RIGHT DELTO ID [id number] A 150 complet ed [place] COVID-19 (MODERNA), MRNA, LNP-S, BIVALENT BOOSTER, PF, 50 MCG/0.5 ML OR 25MCG/0.25 ML DOSE 1 2021 229 complet ed [facility] INFLUENZA, UNSPECIFIED FORMULATION 2021 88 complet ed [facility] COVID-19 (MODERNA), MRNA, LNP-S, PF, 100 MCG/0.5ML DOSE OR 50 MCG/0.25ML DOSE 3 2020 207 complet ed [facility] COVID-19 (MODERNA), MRNA, LNP-S, PF, 100 MCG/0.5 ML DOSE 2 2020 207 complet ed [facility] COVID-19 (MODERNA), MRNA, LNP-S, PF, 100 MCG/0.5 ML DOSE 1 2020 207 complet ed [facility] INFLUENZA, INJECTABLE, MDCK, PRESERVATIVE FREE, QUADRIVALENT 2018 171 complet ed Partner: [facility]. Administe red by: [facility] Clinician (NPI=Not Provided) . Partner 6 Lot#: [id number] Mfr: [facility]US [facility] INFLUENZA, SEASONAL, INJECTABLE 2016 141 complet ed Site: Left Deltoid [place] FLU,3 YRS (HISTORICAL) 2015 88 complet ed [facility] PNEUMOCOCCAL POLYSACCHARID E PPV23 2014 33 complet ed [place] DTAP, UNSPECIFIED FORMULATION 2013 107 complet ed Site: Left Deltoid, Site: Right Deltoid [place] FLU,3 YRS (HISTORICAL) 2010 88 complet ed Site: Right Deltoid [facility] [facility] anthrax vaccine 5 2010 [id number] [employer] [place] ([facility]) complet ed anthrax vaccine DoD influenza virus vaccine, split virus (incl. purified surface antigen)-reti red CODE 4 2010 [id number] Sanofi Pasteur ([facility]) complet ed influenza virus vaccine, split virus (incl. purified surface antigen)- retired CODE DoD anthrax vaccine 5 2009 [id number] [employer] [place] ([facility]) complet ed anthrax vaccine DoD typhoid Vi capsular polysaccharid e vaccine 1 2009 [id number] Sanofi Pasteur ([facility]) complet ed typhoid Vi capsular polysacch aride vaccine DoD FLU,3 YRS (HISTORICAL) 2008 88 complet ed Site: Right Deltoid [facility] [place] [facility] anthrax vaccine 4 2007 [id number] Unknown (UNK) comple t ed anthrax vaccine DoD influenza virus vaccine, live, attenuated, for intranasal use 1 2006 [id number] Unknown (UNK) comple t ed influenza virus vaccine, live, attenuate d, for intranasa l use DoD anthrax vaccine 3 2006 [id number] [employer] [place] ([facility]) complet ed anthrax vaccine DoD anthrax vaccine 2 2006 UNK 24 [employer] [place] ([facility]) complet ed anthrax vaccine DoD vaccinia (smallpox) vaccine 1 2006 [id number] [facility] ([facility]) complet ed vaccinia (smallpox ) vaccine DoD HEP B, ADULT 3 2006 43 complet ed [facility] anthrax vaccine 1 2006 [id number] [employer] [place] ([facility]) complet ed anthrax vaccine DoD hepatitis B vaccine, adult dosage 3 2006 [id number] 43 [employer] (SKB) complet ed hepatitis B vaccine, adult dosage DoD typhoid Vi capsular polysaccharid e vaccine 1 2006 [id number] Sanofi Pasteur ([facility]) complet ed typhoid Vi capsular polysacch aride vaccine DoD HEP B, ADULT 2 2006 43 complet ed [facility] influenza virus vaccine, split virus (incl. purified surface antigen)-reti red CODE 1 2006 [id number] 15 Unknown (UNK) comple t ed influenza virus vaccine, split virus (incl. purified surface antigen)- retired CODE DoD hepatitis B vaccine, adult dosage 2 2006 [id number] 43 Unknown (UNK) complet ed hepatitis B vaccine, adult dosage DoD hepatitis A vaccine, adult dosage 3 2006 [id number] 52 Unknown (UNK) complet ed hepatitis A vaccine, adult dosage DoD hepatitis A and hepatitis B vaccine 2 2005 [id number] 104 [employer] (SKB) complet ed hepatitis A and hepatitis B vaccine DoD HEP B, ADULT 1 2005 43 complet ed [facility] varicella virus vaccine 1 2005 NONE 21 (NON) Not Given varicella virus vaccine DoD hepatitis B vaccine, adult dosage 1 2005 NONE 43 (NON) Not Given hepatitis B vaccine, adult dosage DoD measles, mumps and rubella virus vaccine 1 2005 [id number] Merck (MSD) complet ed measles, mumps and rubella virus vaccine DoD hepatitis A vaccine, adult dosage 1 2005 [id number] 52 M/A-COM (SKB) complet ed hepatitis A vaccine, adult dosage DoD trivalent poliovirus vaccine, live, oral 1 2005 [id number] Sanofi Pasteur (PMC) complet ed trivalent polioviru s vaccine, live, oral DoD tetanus and diphtheria toxoids, adsorbed, preservative free, for adult use (2 Lf of tetanus toxoid and 2 Lf of diphtheria toxoid) 1 2005 [id number] 09 Sanofi Pasteur (PMC) complet ed tetanus and diphtheri a toxoids, adsorbed, preservat agnieszka free, for adult use (2 Lf of tetanus toxoid and 2 Lf of diphtheri a toxoid) DoD influenza virus vaccine, split virus (incl. purified surface antigen)-reti red CODE 1 2005 [id number] 15 [employer]. (MED) complet ed influenza virus vaccine, split virus (incl. purified surface antigen)- retired CODE DoD meningococcal polysaccharid e (groups A, C, Y and W-135) diphtheria toxoid conjugate vaccine (MCV4P) 1 2005 [id number] 114 Sanofi Pasteur (PMC) complet ed meningoco ccal polysacch aride (groups A, C, Y and W-135) diphtheri a toxoid conjugate vaccine (MCV4P) DoD TD(ADULT) UNSPECIFIED FORMULATION 2005 139 complet ed [facility] Results Combined list of recent chemistry, hematology and other laboratory results from Department of Defense and Veterans Affairs, ranging from 15 months to all on record, depending upon the facility. Order Name Results Value Reference Range Date Interpretation Specimen Comments Source TESTOSTER ONE, TOTAL (WHV) TESTOSTERON E [MASS/VOLUM E] IN SERUM OR PLASMA 721.53 ng/dL 220.00 - 892.00 06/28 Specimen Type: SERUM No comment entered. Ordering Provider: EDIE ALVARADO Report Released Date/Time: May 27, 2024 06:04 AM Reporting Lab: [facility] [place] [facility] [address] [facility] [address] Performing Lab: [facility] [place] [address] [address] [facility] PTH INTACT PARATHYRIN. INTACT [MASS/VOLUM E] IN SERUM OR PLASMA 33.7 pg/mL 10 - 65 06/28 Specimen Type: SERUM No comment entered. Ordering Provider: EDIE ALVARADO Report Released Date/Time: May 27, 2024 06:04 AM Reporting Lab: [facility] [place] [facility] [address] [facility] [address] Performing Lab: [facility] [place] [facility] [address] [facility] [address] [facility] PSA PROSTATE SPECIFIC AG [MASS/VOLUM E] IN SERUM OR PLASMA 0.42 ng/mL 0.00 - 4.00 06/28 Specimen Type: SERUM No comment entered. Ordering Provider: EDIE ALVARADO Report Released Date/Time: May 27, 2024 06:04 AM Reporting Lab: [facility] [place] [facility] [address] [facility] [address] Performing Lab: [facility] [place] [facility] [address] [facility] [address] [facility] [facility] CBC LEUKOCYTES [#/VOLUME] IN BLOOD BY AUTOMATED COUNT 7.20 10*3/u L 4.50 - 11.00 06/28 Specimen Type: BLOOD No comment entered. Ordering Provider: EDIE ALVARADO Report Released Date/Time: May 27, 2024 06:04 AM Reporting Lab: [facility] [place] [facility] [address] [facility] [address] Performing Lab: [facility] [place] [facility] [address] [facility] [address] [facility] [facility] CBC ERYTHROCYTE S [#/VOLUME] IN BLOOD BY AUTOMATED COUNT 5.34 10*6/u L 4.23 - 5.66 06/28 Specimen Type: BLOOD No comment entered. Ordering Provider: EDIE ALVARADO Report Released Date/Time: May 27, 2024 06:04 AM Reporting Lab: [facility] [address] [facility] [address] Performing Lab: [facility] [place] [facility] [address] [facility] [address] [facility] CBC HEMOGLOBIN [MASS/VOLUM E] IN BLOOD 15.3 g/dL 12.8 - 17 06/28 Specimen Type: BLOOD No comment entered. Ordering Provider: EDIE ALVARADO Report Released Date/Time: May 27, 2024 06:04 AM Reporting Lab: [facility] [place] [facility] [address] [facility] [address] Performing Lab: [facility] [place] [facility] [address] [facility] [address] [facility] [facility] CBC HEMATOCRIT [VOLUME FRACTION] OF BLOOD BY AUTOMATED COUNT 44.3 39.2 - 50.4 06/28 Specimen Type: BLOOD No comment entered. Ordering Provider: EDIE ALVARADO Report Released Date/Time: May 27, 2024 06:04 AM Reporting Lab: [facility] [place] [facility] [address] [facility] [address] Performing Lab: [facility] [place] [facility] [address] [facility] [address] [facility] CBC MCV [ENTITIC VOLUME] BY AUTOMATED COUNT 83.0 fL 82 - 99 06/28 Specimen Type: BLOOD No comment entered. Ordering Provider: EDIE ALVARADO Report Released Date/Time: May 27, 2024 06:04 AM Reporting Lab: [facility] [place] [facility] [address] [facility] [address] Performing Lab: [facility] [place] [facility] [address] [facility] [address] [facility] CBC MCHC [MASS/VOLUM E] BY AUTOMATED COUNT 34.5 g/dL 30.8 - 35.1 06/28 Specimen Type: BLOOD No comment entered. Ordering Provider: EDIE ALVARADO Report Released Date/Time: May 27, 2024 06:04 AM Reporting Lab: [facility] [address] [facility] [address] Performing Lab: [facility] [address] [facility] [address] [facility] [facility] CBC PLATELETS [#/VOLUME] IN BLOOD BY AUTOMATED COUNT 272 10*3/u L 140 - 360 06/28 Specimen Type: BLOOD No comment entered. Ordering Provider: EDIE ALVARADO Report Released Date/Time: May 27, 2024 06:04 AM Reporting Lab: [facility] [address] [facility] [address] Performing Lab: [facility] [place] [facility] [address] [facility] [address] [facility] [place] [facility] CBC ERYTHROCYTE DISTRIBUTIO N WIDTH [RATIO] BY AUTOMATED COUNT 12.6 12.0 - 16.0 06/28 Specimen Type: BLOOD No comment entered. Ordering Provider: EDIE ALVARADO Report Released Date/Time: May 27, 2024 06:04 AM Reporting Lab: [facility] [place] [facility] [address] [facility] [address] Performing Lab: [facility] [place] [facility] [address] [facility] [address] [facility] [place] [facility] CBC MCH [ENTITIC MASS] BY AUTOMATED COUNT 28.7 pg 26.2 - 32.6 06/28 Specimen Type: BLOOD No comment entered. Ordering Provider: EDIE ALVARADO Report Released Date/Time: May 27, 2024 06:04 AM Reporting Lab: [facility] [address] [facility] [address] Performing Lab: [facility] [place] [facility] [address] [facility] [address] [facility] [place] [facility] CALCIUM CALCIUM [MASS/VOLUM E] IN SERUM OR PLASMA 9.2 mg/dL 8.5 - 10.2 06/28 Specimen Type: SERUM No comment entered. Ordering Provider: EDIE ALVARADO Report Released Date/Time: May 27, 2024 06:04 AM Reporting Lab: [facility] [address] [facility] [address] Performing Lab: [facility]-TUSCALOOSATRN [facility] [address] [facility] [address] [facility] BASIC METABOLIC PANEL (non-fast ing) UREA NITROGEN [MASS/VOLUM E] IN SERUM OR PLASMA 13 mg/dL 7 - 25 06/28 Specimen Type: SERUM No comment entered. Ordering Provider: EDIE ALVARADO Report Released Date/Time: May 27, 2024 06:04 AM Reporting Lab: [facility]CALOOSATRN [facility] [address] [facility] [address] Performing Lab: [facility] [address] [facility] [address] [facility] BASIC METABOLIC PANEL (non-fast ing) GLUCOSE [MASS/VOLUM E] IN SERUM OR PLASMA 94 mg/dL 65 - 100 06/28 Specimen Type: SERUM No comment entered. Ordering Provider: EDIE ALVARADO Report Released Date/Time: May 27, 2024 06:04 AM Reporting Lab: [facility]CALOOSATRN [facility] [address] [facility] [address] Performing Lab: [facility]N [facility] [address] [facility] [address] [facility] BASIC METABOLIC PANEL (non-fast ing) SODIUM [MOLES/VOLU ME] IN SERUM OR PLASMA 137 mmol/L 135 - 145 06/28 Specimen Type: SERUM No comment entered. Ordering Provider: EDIE ALVARADO Report Released Date/Time: May 27, 2024 06:04 AM Reporting Lab: [facility] [address] [facility] [address] Performing Lab: [facility]N [facility] [address] [facility] [address] [facility] BASIC METABOLIC PANEL (non-fast ing) POTASSIUM [MOLES/VOLU ME] IN SERUM OR PLASMA 4.5 mmol/L 3.5 - 5.0 06/28 Specimen Type: SERUM No comment entered. Ordering Provider: EDIE ALVARADO Report Released Date/Time: May 27, 2024 06:04 AM Reporting Lab: [facility] [address] [address] Performing Lab: [facility] [address] [facility] [address] [facility] BASIC METABOLIC PANEL (non-fast ing) CHLORIDE [MOLES/VOLU ME] IN SERUM OR PLASMA 104 mmol/L 100 - 110 06/28 Specimen Type: SERUM No comment entered. Ordering Provider: EDIE ALVARADO Report Released Date/Time: May 27, 2024 06:04 AM Reporting Lab: [address] [address] Performing Lab: [address] [address] [facility] BASIC METABOLIC PANEL (non-fast ing) CARBON DIOXIDE, TOTAL [MOLES/VOLU ME] IN SERUM OR PLASMA 25 meq/L 20 - 30 06/28 Specimen Type: SERUM No comment entered. Ordering Provider: EDIE ALVARADO Report Released Date/Time: May 27, 2024 06:04 AM Reporting Lab: [address] [address] Performing Lab: [facility] [address] [address] [facility] BASIC METABOLIC PANEL (non-fast ing) CREATININE [MASS/VOLUM E] IN SERUM OR PLASMA 1.03 mg/dL 0.50 - 1.40 06/28 Specimen Type: SERUM No comment entered. Ordering Provider: EDIE ALVARADO Report Released Date/Time: May 27, 2024 06:04 AM Reporting Lab: [address] [address] Performing Lab: [facility] [place] [facility] [facility] [address] [facility] [address] [facility] BASIC METABOLIC PANEL (non-fast ing) GLOMERULAR FILTRATION RATE/1.73 SQ M.PREDICTED [VOLUME RATE/AREA] IN SERUM, PLASMA OR BLOOD BY CREATININE- BASED FORMULA (CKD-EPI 2020) >90mL/ min 60 06/28 Specimen Type: SERUM No comment entered. Ordering Provider: EDIE ALVARADO Report Released Date/Time: May 27, 2024 06:04 AM Reporting Lab: [facility] [place] [address] [address] Performing Lab: [facility] [address] [facility] [address] [facility] TESTOSTER ONE, TOTAL (WHV) TESTOSTERON E [MASS/VOLUM E] IN SERUM OR PLASMA 744.77 ng/dL 220.00 - 892.00 03/22 Specimen Type: SERUM No comment entered. Ordering Provider: EDIE ALVARADO Report Released Date/Time: Feb 17, 2024 01:47 PM Reporting Lab: [facility] [address] [facility] [address] Performing Lab: [place] [facility]ITALUS[facility] [address] [address] [facility] MICROALBU MIN CREATININ E RATIO PANEL MICROALBUMI N/CREATININ E [MASS RATIO] IN URINE 2.9 mg/g 0 - 29.9 03/22 Specimen Type: URINE No comment entered. Ordering Provider: EDIE ALVARADO Report Released Date/Time: Feb 17, 2024 01:47 PM Reporting Lab: [place] [facility] [address] [facility] [address] Performing Lab: [place] [facility] [address] [facility] [address] [facility] MICROALBU MIN CREATININ E RATIO PANEL MICROALBUMI N [MASS/VOLUM E] IN URINE 0.5 mg/dL 03/22 Specimen Type: URINE No comment entered. Ordering Provider: EDIE ALVARADO Report Released Date/Time: Feb 17, 2024 01:47 PM Reporting Lab: [facility] [place] [address] [address] Performing Lab: [facility] [address] [facility] MICROALBU MIN CREATININ E RATIO PANEL CREATININE [MASS/VOLUM E] IN URINE 173.46 mg/dL 03/22 Specimen Type: URINE No comment entered. Ordering Provider: EDIE ALVARADO Report Released Date/Time: Feb 17, 2024 01:47 PM Reporting Lab: [facility] [address] Performing Lab: [facility]ITALUSE[address] [address] [place] [address] [facility] PSA PROSTATE SPECIFIC AG [MASS/VOLUM E] IN SERUM OR PLASMA 0.49 ng/mL 0.00 - 4.00 03/22 Specimen Type: SERUM No comment entered. Ordering Provider: EDIE ALVARADO Report Released Date/Time: Feb 17, 2024 01:47 PM Reporting Lab: [facility] [place] [address] [address] Performing Lab: [facility]ALTHN [phone] [place], [place] [address] [facility]ITAL[facility] HEMOGLOBI N A1C PANEL HEMOGLOBIN A1C/HEMOGLO BIN.TOTAL IN BLOOD BY HPLC 5.3 4.0 - 5.6 03/22 Specimen Type: BLOOD Comment: Values obtained from A1C measurement s can vary. For atypical A1C assays, a reported value of 7.0 could actually be between 6.72 and 7.28 if measured by a reference method. A reported value of 9.0 could actually be between 8.73 and 9.27. Ref: http://www. ngsp.org/[place] Pdata.asp Ordering Provider: EDIE ALVARADO Report Released Date/Time: Feb 17, 2024 01:47 PM Reporting Lab: [facility] [place] [facility] [address] [facility] [address] Performing Lab: [facility] [place] [facility] [address] [facility] [address] [facility] [place] [facility] Vital Signs Combined list of inpatient and outpatient Vital Signs from Department of Defense and Veterans Affairs, ranging from 12 months to all on record, depending upon the facility. Vital Sign Value Date Comments Source SYSTOLIC BLOOD PRESSURE 133 08/08/20 10:53:57 [place] DIASTOLIC BLOOD PRESSURE 81 024 10:53:57 [place] PULSE OXIMETRY 98 08/08/2024 10:53:57 [place] WEIGHT 234 08/08/2024 10:53:57 [place] BMI 36kg/m2 08/08/2024 10:53:57 [place] PULSE 87 08/08/2024 10:53:57 [place] SYSTOLIC BLOOD PRESSURE 119 07/10/20 15:42:29 [facility] [place] [facility] DIASTOLIC BLOOD PRESSURE 79 024 15:42:29 [facility] [place] [facility] PULSE OXIMETRY 98 07/10/2024 15:42:29 [facility] [place] [facility] WEIGHT 234 07/10/2024 15:42:29 [facility] [place] [facility] BMI 36kg/m2 07/10/2024 15:42:29 [facility] [place] [facility] PAIN 0 07/10/2024 15:42:29 [facility] [place] [facility] TEMPERATURE 97.9 07/10/2024 15:42:29 [facility] [place] [facility] PULSE 100 07/10/2024 15:42:29 [facility] [place] [facility] RESPIRATION 16 07/10/2024 15:42:29 [facility] [place] [facility] Encounters Combined list of: 1) Encounters from Department of Veterans Affairs facilities going back up to thelast 18 months. 2) Encounters from the Department of Defense facilities going back up to 280 months. Location Location Details Encounter Type Encounter Number Reason For Visit Attending Provider ADM Date DC Date Status Disposition [facility] OUT[facility] [id number] MARLIN RUSHING 02/12 Released w/o Limitations [facility] [id number] JAIME QIU 02/15 [facility]ased w/o Limitations [facility] OUTPATIENT [id number] athlete s foot CORNELL OWENS 05/20 Released w/o Limitations [facility] [place] OFF/OP EST MARCH X REQ PHY/QHP [id number] Diagnos is: ICD-10- CM I10 Essenti al (primar y) hyperte nsion<b r/> DARRION FONSECA 06/08 [place] [facility] [facility] Outpatient Encounter [id number] 06/08 [facility] [place] [facility] [facility] Outpatient Encounter [id number] MAY BOLAÑOS 07/01 [facility] [place] [facility] OFFICE O/P EST HI 40-54 MIN [id number] Diagnos is: ICD-10- CM 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<b r/> NORA ALVARADO 07/20 [facility] [place] Outpatient Encounter [id number] 07/22 [facility] [place] [facility] [facility] [place] [facility] Outpatient Encounter [id number] 08/03 [facility] [place] [facility] OFFICE O/P EST LOW 20-29 MIN [id number] Diagnos is: ICD-10- CM I10 Essenti al (primar y) hyperte nsion<b r/> DARRION FONSECA 08/04 [place] [facility] Out[facility] Encounter [id number] 08/06 [facility] [place] [facility] LD OFF/OP EST MAY X REQ PHY/QHP [id number] Diagnos is: ICD-10- CM Z23 Encount er for immuniz ation<b r/> BOLAÑOSMAY 08/12 [facility] EST MOD 30-39 MIN [id number] Diagnos is: ICD-10- CM F43.12 Post-tr aumatic stress disorde r, chronic
KENYMADELYN Nathan 11/09 [place] [facility] [id number] 11/17 [facility] [place] En[facility] [id number] NORA ALVARADO 01/16 [facility] [place] [facility] Encounter [id number] GERTRUDIS RUSS 03/02 [facility] [place] En[facility] [id number] 03/24 [facility] [place] Encounter [id number] NORA ALVARADO 03/24 [facility] [place] Encounter [id number] 04/24 [facility] [place] Encounter [id number] ROCKY JIMÉNEZ 04/25 [facility] [place] Encounter [id number] 05/05 [facility] [place] Encounter [id number] NORA ALVARADO 05/27 [facility] [place] Encounter [id number] NORA ALVARADO 06/30 [facility] [place] OFFICE O/P EST MOD 30 MIN [id number] Diagnos is: ICD-10- CM M85.80 Oth disrd of bone density and structu re, unspeci fied site
NORA ALVARADO 07/10 [facility] En[facility] [id number] 07/11 [facility] [place] Encounter [id number] 07/28 [facility] [place] [facility] Encounter [id number] 08/01 [facility] [place] [place] OFFICE O/P EST MOD 30 MIN [id number] Diagnos is: ICD-10- CM E78.5 Hyperli pidemia , unspeci fied
SONALI PAN F 08/08 [place] [facility] [facility] Outpatient Encounter [id number] 1.09/05 [facility] [place] [facility] [facility] OFF/OP EST MARCH X REQ PHY/QHP [id number] Diagnos is: ICD-10- CM E66.9 Obesity , unspeci fied
GERTRUDIS RUSS 09/11 [facility] [place] Outpatient Encounter [id number] 1.09/11 [facility] [place] [facility] [facility] [place] [facility] Outpatient Encounter [id number] 1.09/11 [facility] [place] [facility] [facility] [place] [facility] Outpatient Encounter [id number] 1. 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 Procedure Procedure Type Code Date Perfomer Comments Sourc e PHYS/OTH QUALIFIED HEALTH BRANCH OFFICE ADMINISTRATOR QUALIFIED,EDUCATION, TRAIN,LICENSURE/REGU LATION (WHEN APPLICABLE) EDUC SER RENDERED TO PATS IN A GRP SETTING (EG,,OBESITY ,OR DIABETIC INSTRUCT) 02/16/2006 [facility] HEPATITIS A VACCINE (HEPA), ADULT DOSAGE, FOR INTRAMUSCULAR USE 02/15/2006 [facility] VIS FUNCT SCREEN,AUTOMAT/SEMI- AUTOMAT BILAT QUANT DETERM VISUAL ACUITY,OCULAR ALIGN,COLOR VISION,PSEUDOISOCHRO MAT PLATES,& FIELD VIS (MAY INC ALL/SOME SCRN DETERM FOR CONTRAST SENSITIV,VIS UND GLARE) 02/12/2006 [facility] PURE TONE AUDIOMETRY (THRESHOLD); AIR ONLY 06/08/2011 [facility] INDIVIDUAL PSYCHOTHERAPY, INSIGHT ORIENTED, BEHAVIOR MODIFYING AND/OR SUPPORTIVE, IN AN OFFICE OR OUTPATIENT FACILITY, APPROXIMATELY 45 TO 50 MINUTES [id number] WITH THE PATIENT 06/07/2011 [facility] PURE TONE AUDIOMETRY (THRESHOLD); AIR ONLY 06/06/2011 [facility] TYPHOID VACCINE, CAPSULAR POLYSACCHARIDE (VICPS), FOR INTRAMUSCULAR USE 06/20/2010 [facility] PURE TONE AUDIOMETRY (THRESHOLD); AIR ONLY 06/20/2010 [facility] VIS FUNCT SCREEN,AUTOMAT/SEMI- AUTOMAT BILAT QUANT DETERM VISUAL ACUITY,OCULAR ALIGN,COLOR VISION,PSEUDOISOCHRO MAT PLATES,& FIELD VIS (MAY INC ALL/SOME SCRN DETERM FOR CONTRAST SENSITIV,VIS UND GLARE) 03/13/2008 [facility] ANTHRAX VACCINE, FOR SUBCUTANEOUS OR INTRAMUSCULAR USE 05/26/2007 [facility] ANTHRAX VACCINE, FOR SUBCUTANEOUS OR INTRAMUSCULAR USE 04/07/2007 [facility] VIS FUNCT SCREEN,AUTOMAT/SEMI- AUTOMAT BILAT QUANT DETERM VISUAL ACUITY,OCULAR ALIGN,COLOR VISION,PSEUDOISOCHRO MAT PLATES,& FIELD VIS (MAY INC ALL/SOME SCRN DETERM FOR CONTRAST SENSITIV,VIS UND GLARE) 03/22/2007 [facility] Psychotherapy Individual Approximately 45 Minutes Psychotherapy Individual Approximately 45 Minutes [id number] 06/07/2011 CLAUDIA HIDALGO Hepatitis A Vaccine Adult Dosage (Intramuscular Use) Hepatitis A Vaccine Adult Dosage (Intramuscular Use) 54642 02/16/2006 JAIME CROCKETT Skin Test Anergy Tuberculin Intradermal Skin Test Anergy Tuberculin Intradermal 11835 02/16/2006 JAIME CROCKETT Physician Supervised Injection Subcutaneous Physician Supervised Injection Subcutaneous 92763 02/16/2006 JAIME CROCKETT Venipuncture Venipuncture 88581 02/16/2006 JAIME CROCKETT Td Vaccine Td Vaccine 09571 02/16/2006 JAIME CROCKETT Vaccines Viral Measles, Mumps and Rubella, Live Vaccines Viral Measles, Mumps and Rubella, Live 07475 02/16/2006 JAIME CROCKETT Meningococcal Polysaccharide Diphtheria Toxoid Conjugate Vaccine 02/16/2006 JAIME CROCKETT Injection, penicillin G benzathine, up to 1,200,000 units 02/16/2006 JAIME CROCKETT Physician Supervised Injection Intramuscular Antibiotic Physician Supervised Injection Intramuscular Antibiotic 91700 02/16/2006 JAIME CROCKETT [facility] Immunization Administration By Injection, One Vaccine Immunization Administration By Injection, One Vaccine 41962 02/16/2006 JAIME CROCKETT [facility] Influenza Split Virus Vaccine 0.5mL Dosage Intramuscular 02/16/2006 JAIME CROCKETT [facility] Vaccines Viral Polio, Inactivated Vaccines Viral Polio, Inactivated 85199 02/16/2006 JAIME CROCKETT [facility] Immunization Administration By Injection, Each Additional Vaccine 02/16/2006 JAIME CROCKETT [facility] Visual Function Screening Visual Function Screening 78936 02/15/2006 MARLIN RUSHING [facility] Social History Combined list of available smoking, tobacco, and other social history from Department of Defense and Veterans Affairs facilities. Social History Type Response Date Comment Source Tobacco smoking status [facility] VA-TOBACCO FORMER USER 08/08/2024 [place] History of tobacco use MO-TOBACCO QUIT 5 TO < 15 YRS 08/08/2024 [place] History of tobacco use VA-TOBACCO USER EVERY DAY 01/18/2023 [place] History of tobacco use MO-TOBACCO QUIT 1 TO < 5 YRS 01/19/2022 [facility] [place] [facility] History of tobacco use MO-TOBACCO USE MED NO 01/19/2020 [place] History of tobacco use MO-TOBACCO USER SOME DAYS 01/11/2019 [place] History of tobacco use CURRENT SMOKER 02/02/2018 1 to 2 cigarettes a week [place] History of tobacco use CURRENT SMOKELESS TOBACCO USER 03/05/2017 one can every 3 months [place] History of tobacco use CURRENT SMOKER 05/08/2016 trying back [place] History of tobacco use V1-PT READY TO QUIT TOBACCO USE 04/29/2016 [place] History of tobacco use V1-PT DECLINES TOBACCO CESSATION MEDS 10/23/2015 [place] History of tobacco use CURRENT SMOKER 04/12/2015 1/4 to 1/2 ppd since stopped chantix [place] History of tobacco use V1-PT READY TO QUIT TOBACCO USE 07/27/2014 [place] History of tobacco use CURRENT SMOKER 04/30/2014 [facility] [place] [facility] History of tobacco use CURRENT SMOKER 07/16/2011 half pack a day [facility] [place] [facility] History of tobacco use CURRENT SMOKER 09/24/2009 1/2 ppd [facility] History of tobacco use V1-PT THINKING ABOUT QUIT TOBACCO USE 02/28/2009 [facility] History of tobacco use V1-PT READY TO QUIT TOBACCO USE 09/21/2008 [facility] History of tobacco use CURRENT SMOKER 09/21/2008 ONE PPD X 9 YEARS [facility] History of tobacco use CURRENT SMOKER 08/31/2008 1 pack a day [facility] This section is an empty social history section. [facility] Plan of Care List of future care activities from Department of [facility] Affairs facilities. Additional future care activities may be listed in the Assessment and Plan section. Date/Time Care Activity Care Activity Detail Facili ty 12/20/2024 AMBULATORY - MEDICINE AMBULATORY - MEDICI NE [facility] 01/11/2025 AMBULATORY - MEDICINE AMBULATORY - MEDICI [facility] 01/10/2025 Laboratory - Freelance Designer ry Order TESTOSTERONE, TOTAL ([facility]) BLOOD (SST-GOLD) [facility] 01/10/2025 Laboratory - Freelance Designer ry Order CBC BLOOD (LAV-BLOOD) [facility] 01/10/2025 Laboratory - Freelance Designer ry Order CALCIUM BLOOD (SST-SERUM) SP [facility] 01/10/2025 Laboratory - Freelance Designer ry Order VITAMIN D (25-[place]) BLOOD (SST-SERUM) [facility] 01/10/2025 Laboratory - Freelance Designer ry Order BASIC METABOLIC PANEL (non-fasting) BLOOD (SST-SERUM) SP [facility]
--- OUTSIDE RECORDS SUMMARY | 2024-12-08 12:33 | XMS_ITS | Patient Health Record ---
Author Organization [employer] [facility] Address [address] [place] [address] Care Team Providers Care Neurodiagnostic Technologist Name Role Phone SERA GRANADOS Unavailable [phone] ALLERGIES Allergen (clinical drug ingredient) Drug/Non Drug Allergy documented on EMR Reaction Allergy Type Onset Date Status clindamycin Clindamycin stomach upset Drug Allergy Active REASON FOR REFERRAL No Information MEDICATIONS Medication SIG (Take, Route, Frequency, Duration) [...] W/U Status Risk SNOMED Code Notes Problem Essential hypertension (I10) Active confirmed 81590065 Problem Hyperlipidemia, unspecified hyperlipidemia type (E78.5) Active confirmed 93621865 Problem Annual physical exam (Z00.00) Active confirmed Annual health maintenance examination (03407956) Problem Vitamin D deficiency (E55.9) Active confirmed Vitamin D deficiency (22278283) Problem Diabetes mellitus screening (Z13.1) Active confirmed Diabetes m ellitus screening (237203715) Problem Thyroid disorder screen (Z13.29) Active confirmed Thyroid diso rder screening (809049460) Problem Pituitary adenoma (D35.2) Active confirmed 828201227 Problem History of opioid abuse (F11.11) Active confirmed [id number] Problem Lipid screening (Z13.220) Active confirmed Lipid screening (600320126) VITAL SIGNS Heart Rate 84 /min 11/30/2024 Oximetry 98 % 11/30/2024 Blood pressure diastolic 84 mm Hg 11/30/2024 Height 66 in 11/30/2024 Blood pressure systolic 148 mm Hg 11/30/2024 Weight 232 lbs 11/30/2024 BMI 37.44 kg/m2 11/30/2024 Encounters Encounter Location Date Provider Diagnosis [address] [facility] [address] [place] [address] 11/30/2024 SERA GRANADOS Pituitary adenoma D3 5.2 ; Essential hypertension I10 ; Hyperlipidemia, unspecified hyperlipidemia type E78.5 and History of opioid abuse F11.11 ASSESSMENTS Encounter Date Diagnosis Assessment Notes Treatment Notes Treatment Clinical Notes Section Notes 11/30/2024 Essential hypertension (ICD-10 - I10) Chapo is a 39-year-old male with a PMH of HTN, HLD, pituitary adenoma, history of OTILIO that presents today to establish care as a new patient. #Pituitary adenoma: Patient reports history of pituitary adenoma, stable on most recent imaging. Follows with school bus operator Dr. Phillips at the [place]. Uses 2 times AndroGel pump 20.25 mg/ACT. [...] follows with mental health provider with the [place] and sees Sarah Lombardo NP who prescribes [...] reviewed. Dictation completed with the use of Dragon voice recognition software, prone to medical misidentifications and grammatical errors. All errors are unintentional. Although the practitioner does try to identify and correct errors, some may be present. Please do not hesitate to contact the practitioner for clarification. 11/30/2024 Pituitary adenoma (ICD-10 - D35.2) Chapo is a 39-year-old male with a PMH of HTN, HLD, pituitary adenoma, history of OTILIO that presents today to establish care as a new patient. #Pituitary adenoma: Patient reports history of pituitary adenoma, stable on most recent imaging. Follows with school bus operator Dr. Phillips at the [place]. Uses 2 times AndroGel pump 20.25 mg/ACT. [...] follows with mental health provider with the [place] and sees Sarah Lombardo NP who prescribes [...] reviewed. Dictation completed with the use of Q-Layer voice recognition software, prone to medical misidentifications [...] stable on most recent imaging. Follows with school bus operator Dr. Phillips at the [place]. Uses 2 times AndroGel pump 20.25 mg/ACT. [...] follows with mental health provider with the [place] and sees Sarah Lombardo NP who prescribes [...] reviewed. Dictation completed with the use of Q-Layer voice recognition software, prone to medical misidentifications [...] stable on most recent imaging. Follows with school bus operator Dr. Phillips at the [place]. Uses 2 times AndroGel pump 20.25 mg/ACT. [...] follows with mental health provider with the [place] and sees Sarah Lombardo NP who prescribes [...] reviewed. Dictation completed with the use of Q-Layer voice recognition software, prone to medical misidentifications [...] Details Provider Name:SERA Munguia, 01/04/2025 09:30:00 AM, [address] [facility] [address], [place], [address], Insurance Providers Payer Name Payer Address Payer Phone Subscriber Number Group Number Insured Name Patient Relationship to Insured Coverage Start Date Coverage End Date [facility] [address] [place] [address] [id number] Chapo Barker Self - patient is the insured MEDICAL (GENERAL) HISTORY Medical History History ICD Code high blood pressure high cholesterol anxiety depression Surgical History Surgery Date(Month/Year) miniscus repair on L knee 11/2012
== END 2024-12-08 11:22 | disposition home or self-care (01) ==
PROVIDERS: PCP Internal Medicine; Visit Provider Nurse Practitioner Psychiatric/Mental Health
DX: F11.21 Opioid dependence, in remission (principal); K59.00 Constipation, unspecified
CPT/HCPCS: 99213

== ENCOUNTER 2025-06-01 09:41 | Outpatient (AMB) | payer BC, SELFPAY ==
--- OUTSIDE RECORDS SUMMARY | 2025-04-03 04:30 | XMS_ITS ---
[place] MED[facility] NUTRITION [place] Encounter Summary Created on: June 01, 2025 CHASITY WARREN : 1985 Sex: Male Author Name [facility] [place] [facility] Address [address] [place] [address] Care Team Providers Care Prefitter Name Role Phone MIRIAM HURST Primary Care Provider Unavail able Insurance Providers: All historical and current Section Date Range: From patient's date of to the date document was created. This section includes the names of all active insurance providers for the patient. Insurance Provider Type of Coverage Plan Name Start of Policy Coverage End of Policy Coverage Group Number Member ID Insurance Provider's Telephone Number Policy Salazar's Name Patient's Relationship to Policy Salazar BCBS [employer] [facility]GAN[facility] DEPT May 15, 2024 [id number] RIAZ WARREN PATIENT BCBS OF [facility] [employer] [facility]GAN[facility] DEPT May 15, 2024 [id number] RIAZ WARREN PATIENT [employer] [facility] RX May 15, 2024 [id number] RIAZ WARREN PATIENT Selected Encounter This section includes the information on record at [place] for the Encounter. Date/Time Encounter Type Encounter Description Reason Provider Source April 03, 2025 08:30 AM MEDICAL NUTRITION INDIV IN NUTRITION/DIETETIC S-INDIVIDUAL ICD-10-CM E66.811 Obesity, class 1 MANUELITO PEREZ Encounter Template Text not used by [facility] Assessments - Encounter Diagnoses This section includes the primary and secondary diagnoses documented for the Encounter. Date/Time Primary/Secondary Diagnosis Diagnosis Name Provider Source April 03, 2025 09:21 AM PRIMARY Obesity, class 1 CHRISANDREW Ocasio [place] April 03, 2025 09:21 AM SECONDARY Body mass index [BMI] 34.0-34.9, adult CHRIS,ANDREW Ocasio [place] April 03, 2025 09:21 AM SECONDARY Dietary counseling and surveillance CHRISANDREW SERRANO [place] Plan of Treatment: Future Appointments (+ 6 months) and Future Tests (+/- 45 days) The Plan of Treatment section includes future care activities for the [facility] [place] [facility] This section includes future appointments and future orders which are active, pending or scheduled. Future Appointments This section includes appointments that were scheduled to occur 6 months from the date of the Encounter, up to a maximum of 20 appointments. The data comes from all [place] treatment facilities. Appointment Date/Time Appointment Type Appointme nt Facility Name Jul 11, 2025 09:30 AM AMBULATORY [place]ICINE [place] [facility] Aug 09, 2025 11:30 AM [facility] Oct 02, 2025 08:30 AM [facility]ONE [facility] Social History: Smoking Status (Most current) and Tobacco Use (All prior to encounter date) This section includes the most current, and the historical, smoking and tobacco- related health factors from the [place] facility where the Encounter took place. Current Smoking Status This section includes the most current smoking, or tobacco-related health factor, from the [place] facility where the Encounter took place. Date/Time Current Smoking Status Comment Navin abebe Aug 08, 2024 11:00 AM VA-TOBACCO FORMER USER [place] Tobacco Use History This section includes a history of the smoking, or tobacco-related health factors, that were collected on or before the date of the Encounter. The data comes from the [place] facility where the Encounter took place. 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 [place] Jan 18, 2023 11:00 AM VA-TOBACCO USE MED NO [place] Jan 18, 2023 11:00 AM VA-TOBACCO USER EVERY DAY [place] Jan 19, 2020 09:47 AM VA-TOBACCO DOESNT USE WI 30 MIN WAKEUP [place] Jan 19, 2020 09:47 AM VA-TOBACCO USE > 1 5 LESS THAN 30 YEARS [place] Jan 19, 2020 09:47 AM VA-TOBACCO USE ADVICE [place] Jan 19, 2020 09:47 AM 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 [place] Jan 19, 2020 09:47 AM VA-TOBACCO USE MED NO [place] Jan 19, 2020 09:47 AM VA-TOBACCO USER SOME DAYS [place] Jan 11, 2019 11:37 AM VA-TOBACCO DOESNT USE WI 30 MIN MIDLANDUP [place] Jan 11, 2019 11:37 AM VA-TOBACCO USE 5 TO 15 YEARS [place] Jan 11, 2019 11:37 AM VA-TOBACCO USE ADVICE [place] Jan 11, 2019 11:37 AM 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 [place] Jan 11, 2019 11:37 AM VA-TOBACCO USE MED NO [place] Jan 11, 2019 11:37 AM VA-TOBACCO USER SOME DAYS [place] Feb 02, 2018 09:56 AM CURRENT SMOKER 1 to 2 cigarettes a week [place] Feb 02, 2018 09:56 AM V1-PT NOT INTEREST ED IN QUIT TOBACCO USE [place] Mar 05, 2017 08:16 AM CURRENT SMOKELESS TOBACCO USER one can every 3 months [place] Mar 05, 2017 08:16 AM CURRENT SMOKER about a pack a month [place] Mar 05, 2017 08:16 AM V1-PT NOT INTEREST ED IN QUIT TOBACCO USE [place] May 08, 2016 08:06 AM CURRENT SMOKER trying back [place] May 08, 2016 08:06 AM V1-PT [facility]CLINES REF [facility] May 08, 2016 08:06 AM V1-PT DECLINES TOB ACCO CESSATION MEDS [place] May 08, 2016 08:06 AM V1-PT THINKING ABO UT QUIT TOBACCO USE [place] Apr 29, 2016 05:57 PM V1-PT DECLINES REF [facility] Apr 29, 2016 05:57 PM V1-PT READY TO WICHO T TOBACCO USE [place] Oct 23, 2015 01:29 PM V1-PT DECLINES REF TO TOBACCO CESS [facility] Oct 23, 2015 01:29 PM V1-PT DECLINES TOB ACCO CESSATION MEDS [place] Oct 23, 2015 01:29 PM V1-PT THINKING ABO UT QUIT TOBACCO USE [place] April 12, 2015 09:54 AM CURRENT SMOKER 1/4 to 1/2 ppd since stopped chantix [place] April 12, 2015 09:54 AM V1-PT THINKING ABO UT QUIT TOBACCO USE [place] April 12, 2015 09:54 AM V1-TOBACCO CESS ME DS NOT PRESCRIBED pt plans to discuss with Dr. Medellin [place] Jul 27, 2014 10:16 AM V1-PT DECLINES REF TO TOBACCO CESS [facility] Jul 27, 2014 10:16 AM V1-PT READY TO WICHO T TOBACCO USE [place] Encounter Notes: All associated encounter notes This section contains the clinical notes associated to the Encounter. Date/Time Encounter Note(s) Provider Source April 03, 2025 08:30 AM NUTRITION DIETETIC S CONSULT: LOCAL TITLE: CONSULT REPORT/NUTRITION AND MALE IMPERSONATOR STANDARD TITLE: NUTRITION DIETETICS CONSULT DATE OF NOTE: APRIL 03, 2025@08:30 ENTRY DATE: APRIL 03, 2025@08:47:39 AUTHOR: MANUELITO PEREZ COSIGNER: URGENCY: STATUS: COMPLETED NUTRITION ASSESSMENT Reason for Nutrition referral: Obesity Primary Diagnosis: Obesity class I (E66.811) Secondary Diagnosis: Dietary Surveillance and Counseling (Z71.3) Date of Nutrition Visit: March Visit #: 1 Time Spent with Patient: 40 minutes Patient identified using the following two forms of ID: Date of , Patient Full Name NUTRITION ASSESSMENT: Client History === Medication List Reviewed Food/Drug Interactions: Atorvastatin/Grapefruit Nutritional/Herbal Supplements: Cholecalciferol , MVI w/mins Ca Food Allergies:no Problem List Reviewed: yes Anthropometric Measurements: Ht:68 in [172.7 cm] (01/23/2019 09:04) Wt:229.2 lb [103.96 kg] (04/03/2025 08:47) Weight History: Measurement DT WEIGHT LB(KG)[BMI] 04/03/2025 08:47 229.2(103.96)[35*] 02/06/2025 08:25 229(103.87)[35*] 01/11/2025 09:22 225(102.06)[34*] BMI: 34.9 IBW: 154 lb Biochemical Data/Medical Tests: Labs: LIPID PANEL TREND Collection DT Spec CHOL HDL CHO/HDL LDL-c TRIG 03/22/2024 08:20 SERUM 160 36 L 4.4 102 110 HEMOGLOBIN A1C; BLOOD Gayatri. Date: 03/22/24 08:20 07/26/23 08:47 Test Name Result Units Range HEMOGLOBIN A1C 5.3 5.2 % 4.0 - 5.6 Other Labs:GLUCOSE (BLOOD SUGAR) Collection DT Specimen Test Name Result Units Ref Range 01/04/2025 09:26 SERUM GLUCOSE 90 mg/dL 65 - 100 BP: 134/81 (02/06/2025 08:25) Nutrition Focused Physical Findings: === Appetite: Good Other issues/concerns: None Nutrition-Focused Physical Exam A selection MUST be made in The Nutrition-Focused Physical Exam Summary section Signs of Obesity Body habitus: Android Obesity Nutrition-Focused Physical Exam Summary: ======= Based on the ASPEN/AND Malnutrition Diagnosis Guide, it was determined that the DOES NOT have malnutrition. Nutrition History: Food/Nutrition Related History: Met with who is concerned abotu his weight. He lost an initial 10 lb from his high of 240 lb, but has been unable to lose more. His does the cooking and shopping. He eats out 4-5 times per week. Eats 2-3 meals per day. He notes he snacks often during the day and at night. Drinks mainly water and 1 cup of coffee per day. 24 hour recall: B: skipped L: pretzels D: wendys chili, water snacks: pretzels, freeze pop, spanish ice In the past 3 months, did you ever run out of food and you were not able to access more food or have the money to buy more food? No Physical Activity: hikes regularly NUTRITION DIAGNOSIS Nutrition Problem: NEW Obesity related to excess energy intake, physical inactivity, as evidenced by BMI=30-34.9. INTERVENTION NUTRITION COUNSELING Nutrition counseling based on motivational interviewing strategy , Nutrition counseling based on goal setting strategy , Nutrition counseling based on self monitoring strategy NUTRITION EDUCATION Content related to nutrition education, Education on nutrition's influence on health, Physical activity guidance Nutrition Education provided on the following topics: Healthy Meal Planning, Healthy Weight Loss Strategies, Potential Benefits of Weight Loss, MOVE! program (rationale, format, content, day/time, location), Physical Activity (potential benefits) Printed Nutrition educational materials provided during this encounter: None Barriers to Education: None Comprehension: Good Motivation: Good COORDINATION OF NUTRITION CARE Follow-up with: [facility], PCP MONITORING Patient goals: 1. Start the [facility] weight loss program. 2. Continue to exercise reguarly. 3. Decrease frequency of eating out. 4. Limit snacks and have more balanced meals. FOLLOW-UP PLAN 1. Follow-up visit: Sep 2. Monitor progress toward achievement of Nutrition Intervention Goals 3. Assess comprehension and motivation based on dietary changes made 4. Monitor progress toward achievement of Clinical Outcome Goals: Weight, Labs, Oral Intake CLINICAL OUTCOME GOALS: Indicator: Weight Criteria: Obese per BMI Goal: Weight loss of 1-2/#/week toward IBW by follow-up Progress: TBD at follow-up WHOLE HEALTH ====== WHOLE HEALTH EDUCATION ====== Whole Health Education was provided. /alex/ MANUELITO PEREZ STAFF DIETITIAN Signed: 04/03/2025 09:21 MANUELITO PEREZ
[2025-06-01 09:45] VITALS: PULSE 96; O2SAT 99; BMI 34.8
--- NOTE | 2025-06-01 09:45 | MHC.OFFVIS ---
Vital Signs 06/01/25 09:45 Height 5 ft 8 in Weight 229 lb BMI 34.8 Pulse 96 Pulse Source Pulse Oximeter Pulse Oximetry (%) 99 Oxygen Delivery Method Room Air Intake Visit Reasons: MAT Allergies alcohol (Alcohol) Allergy (Unknown, Verified 06/01/25 09:47) HIVES clindamycin (CLINDAMYCIN) Allergy (Unknown, Verified 06/01/25 09:47) bleeding CLINDAMYCIN Allergy (Unknown, Uncoded 02/01/24 09:28) diarrhea HPI Comments Details: He is doing great and was promoted to [employer]. He has no complaints except occasional constipation that responds to Miralax. [facility] Medical History Constipation Opioid use disorder Review of Systems Const All systems reviewed & are unremarkable except as noted in HPI and below Physical Exam Vital Signs: Last Vital Signs Pulse 96 06/01/25 09:45 Pulse Ox 99 06/01/25 09:45 Oxygen Delivery Method Room Air 06/01/25 09:45 BMI result Body Mass Index 34.8 Const General: cooperative Assessment & Plan Assessment & Plan (1) Opioid use disorder, moderate, in sustained remission: Comment: He is doing well Code(s): F11.21 - Opioid dependence, in remission Category: Medical Plan See as scheduled in two months. Medications: New buprenorphine-naloxone 8-2 mg (Suboxone) 1 film sublingual BID 120 ea 1RF 60 days Coding Level of Care Code Est Pt Level 3 (28668) Diagnoses Opioid use disorder, moderate, in sustained remission F11.21
--- OUTSIDE RECORDS SUMMARY | 2025-06-01 09:50 | XMS_ITS | Patient Health Record ---
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 11/30/2024 CBC (INCLUDES DIFF/PLT) 11/30/2024 HEMOGLOBIN A1c 11/30/2024 HEMOGLOBIN A1c 01/31/2025 TSH W/REFLEX TO FT4 01/31/2025 TSH W/REFLEX TO FT4 11/30/2024 VITAMIN D,25-OH,TOTAL,IA 11/30/2024 Next Appt Details Provider Name:SERA Munguia, 02/05/2026 08:45:00 AM, [address] [facility], [address], [place], [address], Insurance Providers Payer Name Payer Address Payer Phone Subscriber Number Group Number Insured Name Patient Relationship to Insured Coverage Start Date Coverage End Date [facility] [address] [place] [address] [phone] [id number] Chapo Barker Self - patient is the insured Medical (General) History Medical History History ICD Code high blood pressure high cholesterol anxiety depression Surgical History Surgery Date(Month/Year) miniscus repair on L knee 11/2012 vasectomy 12/2024
--- OUTSIDE RECORDS SUMMARY | 2025-06-01 09:50 | XMS_ITS | Clinical Summary ---
Author Organization [facility] Address [address] [place] [address] Care Team Providers Care Pathology Secretary/Transcriptionist Name Role Phone Jayden Sharp MD Primary Care Provider [phone] Surgical History Surgery Date Site/Laterality Comments KNEE SURGERY 2012 PROCEDURE: HISTORICAL KNEE SURGERY; COMMENT: meniscus repair UPPER GASTROINTESTINAL ENDOSCOPY 07/06/2016 PROCEDURE: [place] UPPER GI ENDOSCOPY PERFORMED; COMMENT: normal; duodenal bx: normal. Medical History Medical History Date Comments Hypertension DX:Hypertension PTSD (post-traumatic stress disorder) DX:PTSD (post-traumatic stress disorder) Family History Medical History Relation Name Comments Other: Skin cancer Father Lung cancer Mother Stomach cancer Uncle 1 maternal uncl e Relation Name Status Comments Father parkinsons, [place]/ CAD Mother lung cancer Uncle 1 Uncle 2 Social History Tobacco Use Types Packs/Day Years Used Date Smoking Tobacco: Every Day Cigarettes Smokeless Tobacco: Current Alcohol Use Standard Drinks/Week Comments Yes 0 (1 standard drink = 0.6 oz pur e alcohol) Sex and Gender Information Value Date Recorded Sex Assigned at Not on file Legal Sex Male 11:32 PM EST Gender Identity Not on file Sexual Orientation Not on file Obstetrics History Plan of Treatment Health Maintenance Due Date Last Done Comments COVID-19 Vaccine ( season) 2024 09/30/2022, 10/02/2021, 12/28/2020, Additional history exists DTaP,Tdap,and Td Vaccines (4 - Td or Tdap) 04/17/2025 04/17/2015, 07/27/2014, 11/15/2005 Influenza Vaccine (#1) 2025 , 08/12/2023, 07/17/2022, Additional history exists Hepatitis B Vaccines Completed 03/22/2007, 11/21/2006, 02/16/2006 Pneumococcal Vaccine: Pediatrics (0 to 5 Years) and At-Risk Patients (6 to 49 Years) Aged Out 05/02/2015 No longer eligible based on patient's age to complete this topic HIB Vaccines Aged Out No longer eligi [...] patient's age to complete this topic Meningococcal B Vaccine Aged Out No l onger eligible based on patient's age to complete this topic RSV Immunization Patients Under 20 months Aged Out No longer eligible based on patient's age to complete this topic Varicella Vaccines Aged Out No longer eligible based on patient's age to complete this topic Care Teams Pathology Secretary/Transcriptionist Relationship Specialty Start Date End Date Jayden Sharp MD [address] [place] [address] PCP - General Internal Medicine 07/16/16
--- OUTSIDE RECORDS SUMMARY | 2025-06-01 09:50 | XMS_ITS | Clinical Summary ---
Author Organization [facility] Address [address] [place] [address] Care Team Providers Care Supervisor Glycerin Name Role Phone Princess Medellin MD Primary Care Provider Allergies Active Allergy Reactions Criticality Noted Date [...] 114 11/08/2017 6:04 PM EST Temperature 37.3 C (99.2 F) 11/08/2017 6:04 PM EST Respiratory Rate 15 11/08/2017 6:04 PM EST [...] (1 - Tdap) 2005 Influenza Vaccine (#1) 2025 RSV Ped < 20 months Aged Out No longe r eligible based on patient's age to complete this topic Care Teams Supervisor Glycerin Relationship Specialty Start Date End Date Princess Medellin MD [address] [place] [address] PCP - General Internal Medicine 11/08/17
== END 2025-06-01 09:56 | disposition home or self-care (01) ==
PROVIDERS: PCP Internal Medicine; Visit Provider Internal Medicine
DX: F11.21 Opioid dependence, in remission (principal)
CPT/HCPCS: 99213

== ENCOUNTER 2025-09-28 09:40 | Outpatient (AMB) | payer BC, SELFPAY ==
[2025-09-28 09:47] VITALS: BP 128/72; PULSE 100; O2SAT 96; BMI 37.4
--- NOTE | 2025-09-28 09:47 | MHC.OFFVIS ---
Vital Signs 09/28/25 09:47 Height 5 ft 8 in Weight 246 lb BMI 37.4 BP 128/72 Pulse 100 Pulse Oximetry (%) 96 Intake Visit Reasons: MAT Allergies alcohol (Alcohol) Allergy (Unknown, Verified 09/28/25 09:47) HIVES clindamycin (CLINDAMYCIN) Allergy (Unknown, Verified 09/28/25 09:47) bleeding CLINDAMYCIN Allergy (Unknown, Uncoded 09/28/25 09:47) diarrhea HPI Comments Details: History of Present Illness The patient is a 40-year-old male presenting with follow-up for opioid use disorder management. He has been consistently using Suboxone 8/2 mg twice daily, reporting no significant issues or adverse effects from this treatment. Besides opioid use disorder, he is diagnosed with PTSD and sees a psychiatrist regularly at the OR, presenting no current risk of harm to himself or others. Constipation is a noteworthy concern for the patient, likely related to his Suboxone therapy. The patient is seeking advice on managing this condition, including potential pharmacological options. Review of Systems - Psychiatric: Reports PTSD. Denies homicidal or suicidal ideation. - Gastrointestinal: Reports constipation. Physical Exam - Vitals- Stable. - General- No abnormalities reported. Results Plan Patient was informed and verbally consented to the use of an ambient scribe for clinic note documentation during this visit. 1. Opioid use, unspecified, uncomplicated F11.90 Continue Suboxone 8/2 mg BID with a 60-day supply plus a refill. Reassessment in four months while continuing [facility] therapy. 2. Post-traumatic stress disorder, unspecified F43.10 Continue care with psychiatry at the OR every two months, utilizing stress management devices. 3. Constipation, unspecified K59.00 Advise the patient to consult the pharmacy for Senokot or other treatments. Discussion Notes We discussed the continued management of the patient's opioid use disorder with Suboxone and reaffirmed the importance of ongoing psychiatric support for PTSD at the OR. The patient agreed with the plan and to remain vigilant about his psychological health. We also discussed managing constipation, suggesting that the patient visit the pharmacy to explore treatment options, such as Senokot. Medical Decision Making In considering the patient's stable condition under current Suboxone therapy, continuation of the existing opioid use disorder management plan is justified. The patient's PTSD is appropriately managed through established OR care, and there was no indication for changes. The constipation is recognized as a potential side effect of Suboxone, thus suggesting consultation with the pharmacy for appropriate medication. The interventions aim to maintain the patient's well-being while preventing complications associated with opioid and PTSD management. Patient Instructions - Continue taking Suboxone 8/2 mg twice daily as instructed. - Follow up at the OR for PTSD care every two months. - Visit the pharmacy to explore the use of Senokot for constipation. - Return for a follow-up in four months. - Contact healthcare provider if any changes in mental health status occur. [facility] Medical History Constipation Opioid use disorder Physical Exam Vital Signs: Last Vital Signs Pulse 100 09/28/25 09:47 BP 128/72 09/28/25 09:47 Pulse Ox 96 09/28/25 09:47 BMI result Body Mass Index 37.4 Assessment & Plan Assessment & Plan (1) Opioid use disorder, moderate, in sustained remission: Comment: He is doing well Code(s): F11.21 - Opioid dependence, in remission Category: Medical Plan: as above Medications: New buprenorphine-naloxone 8-2 mg (Suboxone) 1 film sublingual BID 120 ea 1RF 60 days Coding Level of Care Code Est Pt Level 3 (67483) Diagnoses Opioid use disorder, moderate, in sustained remission F11.21
--- OUTSIDE RECORDS SUMMARY | 2025-09-28 10:46 | XMS_ITS | Clinical Summary ---
Author Organization [facility] Address [address] [place] [address] Care Team Providers Care Rotary Derrick Operator Name Role Phone Princess Medellin MD Primary Care Provider [phone] Allergies Active Allergy Reactions Criticality Noted Date [...] age to complete this topic Care Teams Rotary Derrick Operator Relationship Specialty Start Date End Date Princess Medellin MD [address] [place] [address] PCP - General Internal Medicine 11/08/17
--- OUTSIDE RECORDS SUMMARY | 2025-09-28 10:47 | XMS_ITS | Encounter Summary ---
Author Organization [facility] Address [address] [place] [address] Care Team Providers Care Obstetric Anaesthetist Name Role Phone Yolis Herron MD Primary Care Provider [phone] Jayden Sharp MD Primary Care Provider Yenifer mccray Encounter Details Date Type Department Care Team Description 06/17/2016 DIRECTOR ADULT/[facility] Report Medical Records [address] [place] [id number] Yolis Herron MD [address] [place] [id number] Social History Tobacco Use Types Packs/Day Years Used Date Smoking Tobacco: Every Day Cigarettes 0.5 15 Alcohol Use Standard Drinks/Week Comments Yes 0 (1 standard drink = 0.6 oz pur e alcohol) 1-2 times per year Sex Assigned at Date Recorded Not on file documented as of this encounter Plan of Treatment Not on file documented as of this encounter Visit Diagnoses Not on filedocumented in this encounter Care Teams Obstetric Anaesthetist Relationship Specialty Start Date End Date Yolis Herron MD [address] [place] [id number] PCP - General Internal Medicine 09/02/15 07/15/16 Jayden Sharp MD [address] [place] [id number] PCP - General Internal Medicine 07/16/16 documented as of this encounter
--- OUTSIDE RECORDS SUMMARY | 2025-09-28 10:47 | XMS_ITS | Clinical Summary ---
Author Organization [facility] Address [address] [place] [address] Care Team Providers Care Ore Buyer Name Role Phone Jayden Sharp MD Primary Care Provider [phone] Surgical History Surgery Date Site/Laterality Comments KNEE SURGERY 2012 PROCEDURE: HISTORICAL KNEE SURGERY; COMMENT: meniscus repair UPPER GASTROINTESTINAL ENDOSCOPY 07/06/2016 PROCEDURE: [place] UPPER GI ENDOSCOPY PERFORMED; COMMENT: normal; duodenal bx: normal. Medical History Medical History Date Comments Hypertension DX:Hypertension PTSD (post-traumatic stress disorder) DX:PTSD (post-traumatic stress disorder) Family History Medical History Relation Name Comments Other: Skin cancer Father Lung cancer Mother Stomach cancer Uncle 1 maternal uncl e Relation Name Status Comments Father parkinsons, [place]/ CAD Mother lung cancer Uncle 1 Uncle [...] Health Maintenance Due Date Last Done Comments HPV Vaccines (1 - 3-dose SCDM series) 2013 Depression Screening 11/15/2024 DTaP,Tdap,and Td Vaccines (4 - Td or Tdap) 04/17/2025 04/17/2015, 07/27/2014, 11/15/2005 COVID-19 Vaccine ( season) 2025 09/30/2022, 10/02/2021, 12/28/2020, Additional history exists Influenza Vaccine (#1) 2025 , 08/12/2023, 07/17/2022, Additional history exists RSV Immunization Adult Patients (1 - 1-dose 75+ series) 2061 Hepatitis B Vaccines Completed 03/22/2007, 11/21/2006, 02/16/2006 [...] age to complete this topic Care Teams Ore Buyer Relationship Specialty Start Date End Date Jayden Sharp MD [address] [place] [address] PCP - General Internal Medicine 07/16/16
== END 2025-09-28 10:15 | disposition home or self-care (01) ==
LOC: HO.HCC 09:40
PROVIDERS: PCP Internal Medicine; Visit Provider Internal Medicine
DX: F11.21 Opioid dependence, in remission (principal)
CPT/HCPCS: 99213